=== PATIENT | male | born 1940 | race Caucasian/White ===

== ENCOUNTER 2018-01-16 21:21 | Inpatient (IN) | payer OTHER ==
--- NOTE | 2018-01-16 22:43 | PDOC ---
History of Present Illness - General Chief Complaint: Urinary Problem Stated Complaint: CONSTIPATION Time Seen by Provider: 01/16/18 21:42 History Source: Patient Exam Limitations: No Limitations - History of Present Illness Initial Comments: 01/16/18 22:38 77m with pmh of prediabetes, L5 presents with radiculopathy and stomach ulcers presents with urinary retention for the past few days. He got an endoscopy and colonoscopy on January 05 and was started 3 days ago on H. Pylori tri-therapy. Patient complains that his appetite has been poor since then and that he hasn't moved his bowels in days. 01/16/18 22:47 Past History - Past Medical History Allergies/Adverse Reactions: Allergies Allergy/AdvReac Type Severity Reaction Status Date / Time No Known Allergies Allergy Verified 01/16/18 22:29 Home Medications: Ambulatory Orders Amoxicillin - [Amoxicillin 500mg Capsule -] 1,000 mg PO BID 01/16/18 Clarithromycin 1,000 mg PO BID 01/16/18 Dexlansoprazole [Dexilant] 60 mg PO BID 01/16/18 Enalapril Maleate [Vasotec -] 10 mg PO DAILY 01/16/18 - Suicide/Smoking/Psychosocial Hx Smoking History: Never smoked Have you smoked in the past 12 months: No Hx Alcohol Use: No Drug/Substance Use Hx: No Review of Systems - Review of Systems Able to Perform ROS?: Yes Is the patient limited French proficient: No Constitutional: No: Symptoms Reported HEENTM: No: Symptoms Reported Respiratory: No: Symptoms reported Cardiac (ROS): No: Symptoms Reported ABD/GI: Yes: Abdominal Distended Musculoskeletal: No: Symptoms Reported Integumentary: No: Symptoms Reported Neurological: Yes: Pre-Existing Deficit (decreased sensation in the legs. ) All Other Systems: Reviewed and Negative *Physical Exam - Vital Signs Last Vital Signs Temp Pulse Resp BP Pulse Ox 99.1 F 102 H 18 118/64 100 01/16/18 21:31 01/16/18 21:31 01/16/18 21:31 01/16/18 21:31 01/16/18 21:31 - Physical Exam General Appearance: Yes: Nourished, Appropriately Dressed. No: Apparent Distress HEENT: positive: EOMI, JIAN, Normal ENT Inspection Respiratory/Chest: positive: Lungs Clear, Normal Breath Sounds. negative: Chest Tender, Respiratory Distress Cardiovascular: positive: Regular Rhythm, S1, S2, Tachycardia Gastrointestinal/Abdominal: positive: Normal Bowel Sounds, Soft, Distended. negative: Tender, Guarding Musculoskeletal: positive: Normal Inspection. negative: CVA Tenderness Extremity: positive: Normal Capillary Refill, Normal Inspection, Normal Range of Motion Integumentary: positive: Normal Color, Dry, Warm Neurologic: positive: Fully Oriented, Alert, Normal Mood/Affect, Normal Response , Motor Strength 11/15 ED Treatment Course - LABORATORY CBC & Chemistry Diagram: 01/16/18 22:50 01/16/18 22:50 Medical Decision Making - Medical Decision Making 01/16/18 22:[address] El catheter, check UA, uCx. basic labs. El: 1L of urine 01/17/18 01:41 CT lumbar spine : lytic mass with soft tissue components involving the right iliac and sacroiliac articulation. Scattered nodules suggesting metastatic prostate cancer. Admit to hospitalist. *DC/Admit/Observation/Transfer Diagnosis at time of Disposition: Prostate cancer metastatic to bone - Discharge Dispostion Condition at time of disposition: Stable Decision to Admit order: Yes - Referrals - Patient Instructions - Post Discharge Activity
--- NOTE | 2018-01-16 22:51 | PDOC ---
Attending Attestation - HPI HPI: 01/16/18 23:03 The patient is a 77 year old male with a significant PMH of prediabetes, L5 with radiculopathy and stomach ulcers presenting with urinary retention and constipation over the last few days. The patient reports he had an endoscopy and colonoscopy on January 05 and was started in antibiotics for H. Pylori. The patient denies chest pain, shortness of breath, headache and dizziness. Denies fever, chills, nausea, vomit, and diarrhea. Denies dysuria, frequency, urgency and hematuria. Allergies: NKA Past surgical history: None reported. Social history: No reported alcohol, drug, or cigarette use. <Genevieve Esparza - Last Filed: 01/16/18 23:03> - Resident Resident Name: Chris Valdovinos - ED Attending Attestation I have performed the following: I have examined & evaluated the patient, The case was reviewed & discussed with the resident, I agree w/resident's findings & plan, Exceptions are as noted - Physicial Exam PE: GENERAL: Awake, alert, and fully oriented, in no acute distress HEAD: No signs of trauma EYES: PERRLA, EOMI, sclera anicteric, conjunctiva clear ENT: Auricles normal inspection, hearing grossly normal, nares patent, oropharynx clear without exudates. Moist mucosa NECK: Normal ROM, supple, no lymphadenopathy, JVD, or masses LUNGS: Breath sounds equal, clear to auscultation bilaterally. No wheezes, and no crackles HEART: Regular rate and rhythm, normal S1 and S2, no murmurs, rubs or gallops ABDOMEN: Soft, nontender, normoactive bowel sounds. No guarding, no rebound. No masses EXTREMITIES: Normal range of motion, no edema. No clubbing or cyanosis. No cords, erythema, or tenderness NEUROLOGICAL: Cranial nerves II through XII grossly intact. Normal speech, normal gait SKIN: Warm, Dry, normal turgor, no rashes or lesions noted. : Normal sensation to the perineum. - Medical Decision Making Pt with history of lumbar spinal disease presents with urine retention and constipation. His urine retention may be due to BPH, leading to mechanical obstruction causing constipation. However, in light of prior spinal disease, will obtain advanced imaging to r/o a spinal lesion. MRI not available at the time patient presented (too late in the day), will start with CT. <Rosemarie Lopez - Last Filed: 01/17/18 00:44>
[2018-01-16 23:10] LABS: BASO % 0.5 % (0-2.0); EOS % 0.4 % (0-4.5); HEMATOCRIT 36.7 % (35.4-49); HEMOGLOBIN 12.3 GM/dL (11.7-16.9); LYMPH % 13.8 % (8-40); MCH 29.2 pg (25.7-33.7); MCHC 33.5 g/dl (32.0-35.9); MEAN CELL VOLUME 87.1 fl (80-96); MEAN PLT VOLUME 7.7 fl (7.5-11.1); MONO % 15.5 % (3.8-10.2); NEUT % 69.8 % (42.8-82.8); PLATELET COUNT 241 K/MM3 (134-434); RBC 4.21 M/mm3 (4.00-5.60); RDW 14.1 % (11.9-15.9); URINE APPEARANCE CLEAR; URINE BILIRUBIN NEGATIVE (<2.0 mg/dL); URINE COLOR YELLOW; URINE GLUCOSE (UA) NEGATIVE (NEGATIVE); URINE KETONE NEGATIVE (NEGATIVE); URINE LEUK ESTERASE NEGATIVE (NEGATIVE); URINE NITRITE NEGATIVE (NEGATIVE); URINE PROTEIN NEGATIVE (NEGATIVE); WHITE BLOOD COUNT 10.1 K/mm3 (4.0-10.0)
[2018-01-16 23:24] LABS: URINE MUCUS RARE
[2018-01-16 23:34] LABS: ALBUMIN 3.2 g/dl (3.4-5.0); ALK PHOS 749 U/L (45-117); ANION GAP 8 (8-16); BILIRUBIN,TOTAL 0.7 mg/dL (0.2-1.0); BLOOD UREA NITROGEN 23 mg/dL (7-18); CALCIUM 8.6 mg/dL (8.5-10.1); CHLORIDE 100 mmol/L (98-107); CO2 28 mmol/L (21-32); CREATININE 1.3 mg/dL (0.7-1.3); GLUCOSE,RANDOM 114 mg/dL (74-106); POTASSIUM 4.5 mmol/L (3.5-5.1); SGOT/AST 219 U/L (15-37); SGPT/ALT 18 U/L (12-78); SODIUM 136 mmol/L (136-145); TOT PROT 7.4 g/dl (6.4-8.2)
--- NOTE | 2018-01-17 04:51 | PN ---
Teaching Attending Note Name of Resident: Rosetta Le ATTENDING PHYSICIAN STATEMENT I saw and evaluated the patient. I reviewed the resident's note and discussed the case with the resident. I agree with the resident's findings and plan as documented. SUBJECTIVE: Patient is a 77 year old man with a significant PMH of prediabetes, BPH, right foot plantar numbness, PUD presenting with urinary retention and constipation over the last few days. He also has bilateral thigh and back pain. The patient reports he had an endoscopy and colonoscopy on January 05 and was started in antibiotics for H. Pylori infection. OBJECTIVE: Alert and in no acute distress. Vital Signs Period Temp Pulse Resp BP Sys/Tapia Pulse Ox Last 24 Hr 99.1 F 102 18 118/64 100 HEENT: No Jaundice, eye redness or discharge, PERRLA, EOMI. Normocephalic, atraumatic. External ears are normal and hearing is grossly intact. No nasal discharge. Neck: Supple, nontender. No palpable adenopathy or thyromegaly. No JVD Chest: Good effort. Clear to auscultation and percussion. Heart: Regular. No S3, rub or murmur Abdomen: Not distended, soft, nontender and no HSM. No rebound or guarding. Normoactive bowel sounds. Ext: Peripheral pulses intact. No leg edema. Lumbar vertebrae tenderness. Cui in place draining clear urine. Skin: Warm and dry. No petechiae, rash or ecchymosis. Neuro: Alert. Oriented x3. CN 2-12 grossly intact. Sensation grossly intact in all four extremities and DTR are symmetric. Current Medications Generic Name Dose Route Start Last Admin Trade Name Freq PRN Reason Stop Dose Admin Acetaminophen 650 mg 01/17/18 04:24 Tylenol - PO Q4H PRN PAIN LEVEL 1-5 Heparin Sodium (Porcine) 5,000 unit 01/17/18 06:00 Heparin - SQ TID [facility] Sodium Chloride 1,000 mls @ 83 mls/hr 01/17/18 03:30 Normal Saline - IV ASDIR [facility] Home Medications Medication Instructions Recorded Amoxicillin - [Amoxicillin 500mg 1,000 mg PO BID 01/16/18 Capsule -] Clarithromycin 1,000 mg PO BID 01/16/18 Dexlansoprazole [Dexilant] 60 mg PO BID 01/16/18 Enalapril Maleate [Vasotec -] 10 mg PO DAILY 01/16/18 Abnormal Lab Results 01/16/18 01/16/18 01/16/18 22:50 22:50 22:50 WBC 10.1 H Monocytes % 15.5 H BUN 23 H Random Glucose 114 H AST 219 H Alkaline Phosphatase 749 H Albumin 3.2 L Urine Blood 1+ H ASSESSMENT AND PLAN: 1. Urinary retention and bone pain - CT scan showed lumbar lytic and sclerotic bone lesions as well as an enlarged prostate - coupled with elevated alkaline phosphatase, highly suspicious for prostate cancer. Search for other ? metastatic lesions (liver, femur..), get prostate sonogram, PSA, lumbosacral MRI and consult urology and oncology. Continue cui. 2. PUD with H. Pylori infection - Will complete his two week course of antibiotics regimen. 3. Constipation - Treat with Miralax and liberal oral fluids. 4. DVT prophylaxis - Heparin 5000u sq tid. 5. Advance directives - Full code
[2018-01-17] MEDS: SODIUM CHLORIDE 1,000 ML IV SCH ×2 (05:40→23:48)
[2018-01-17 05:45] VITALS: BMI 17.9
[2018-01-17] MEDS: HEPARIN NA (PORCINE) 5,000 UNITS/ML 1ML VIAL SQ SCH ×3 (06:14→21:47)
--- NOTE | 2018-01-17 07:05 | HP ---
CHIEF COMPLAINT: urinary retention PCP: none HISTORY OF PRESENT ILLNESS: 77M with pmhx of HTN, BPH, +H. Pylori and currently being treated, lower back pain admitted for urinary retention. He admits that the urinary retention had started months ago and progressively got worse last night where he was no able to empty his bladder at all. He denies history of UTI, STDs, hematuria, penile discharge or burning sensation during urination. He also denies fever/chills, nausea/vomiting, VIEYRA/dizziness, chest pain, and SOB. He says he was previously examined by a doctor years ago in which he was told that he had an enlarged prostate. He denies follow up for the enlarged prostate for further evaluation. ER course was notable for: (1) Cui catheter put in place, with 625cc output. U/A: +1 blood. (2) CT Lumbar spine: mixed lytic & sclerotic masses in lumbar vertebral body suggesting clinical hx of prostate neoplasm; mottles lytic masses in R SI articulation and sacrum (3) Recent Travel: Travels back and forth between [place], where he currently lives , and [place] to visit his daughters. PAST MEDICAL HISTORY: HTN BPH +H. 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 He currently lives in [place] with his and son. He has 2 daughters and 1 son. Family History: unknown Allergies No Known Allergies Allergy (Verified 01/16/18 22:29) HOME MEDICATIONS: Home Medications Medication Instructions Recorded Amoxicillin - [Amoxicillin 500mg 1,000 mg PO BID 01/16/18 Capsule -] Clarithromycin 1,000 mg PO BID 01/16/18 Dexlansoprazole [Dexilant] 60 mg PO BID 01/16/18 Enalapril Maleate [Vasotec -] 10 mg PO DAILY 01/16/18 REVIEW OF SYSTEMS CONSTITUTIONAL: Denies fever, chills, nausea/vomiting, headaches, dizziness CARDIOVASCULAR: Denies chest pain, palpitations, abnormal heart rate, [place], orthopnea RESPIRATORY: Denies cough, sob, wheezing GASTROINTESTINAL: Admits to constipation, denies diarrhea or black stools GENITOURINARY: Admits to urinary retention; Denies pain/burning urination or hematuria MUSCULOSKELETAL: Admits to lower back pain that alleviated by laying on side, Admits to pain and discomfort in thighs after walking SKIN: Denies rashes, lesions, cuts HEMATOLOGIC/IMMUNOLOGIC: Denies easy bleeding or bruising ENDOCRINE: Denies unintentional weight gain/loss or heat/cold intolerance NEUROLOGIC: Admits to numbness in plantar surface of R foot PHYSICAL EXAMINATION Vital Signs - 24 hr 01/16/18 01/17/18 01/17/18 21:31 04:57 05:31 Temperature 99.1 F 100.1 F H Pulse Rate 102 H 100 H Pulse Rate [ 95 H Left] Respiratory 18 18 18 Rate Blood Pressure 118/64 124/73 Blood Pressure 116/59 [Right Arm] O2 Sat by Pulse 100 100 96 Oximetry (%) 01/17/18 06:17 Temperature 98.8 F Pulse Rate Pulse Rate [ Left] Respiratory Rate Blood Pressure Blood Pressure [Right Arm] O2 Sat by Pulse Oximetry (%) GENERAL: NAD. AAOx3 HEAD: AT/NC EYES: EOMI. EARS, NOSE, THROAT: Ear normal, no discharge or tenderness. Nare patent. No erythema or lesions noted in oropharynx. NECK: Supple, no JVD or LAD> LUNGS: CTA B/L. Symmetric chest rise. No wheezes, rhonchi, or rales appreciated HEART: RRR. Normal S1, S2. No murmurs, rubs, or gallops appreciated. ABDOMEN: Soft NT/ND. Normoactive bowel sounds in all 4Qs. No masses or deformities. MUSCULOSKELETAL: 5/5 motor strength on U/L B/L extremities; No peripheral edema noted. NEUROLOGICAL: Cranial nerves II-XII intact. Normal speech. PSYCHIATRIC: Cooperative. Good eye contact. Appropriate mood and affect. SKIN: Warm, dry, normal turgor, no rashes or lesions noted, normal capillary refill. Laboratory Results - last 24 hr 01/16/18 01/16/18 01/16/18 22:50 22:50 22:50 WBC 10.1 H RBC 4.21 Hgb 12.3 Hct 36.7 MCV 87.1 MCH 29.2 MCHC 33.5 RDW 14.1 Plt Count 241 MPV 7.7 Absolute Neuts (auto) 7.0 Neutrophils % 69.8 Lymphocytes % 13.8 Monocytes % 15.5 H Eosinophils % 0.4 Basophils % 0.5 Nucleated RBC % 0 Sodium 136 Potassium 4.5 Chloride 100 Carbon Dioxide 28 Anion Gap 8 BUN 23 H Creatinine 1.3 Creat Clearance w eGFR 53.53 Random Glucose 114 H Calcium 8.6 Total Bilirubin 0.7 AST 219 H ALT 18 Alkaline Phosphatase 749 H Total Protein 7.4 Albumin 3.2 L Urine Color Yellow Urine Appearance Clear Urine pH 5.0 Ur Specific [place] 1.014 Urine Protein Negative Urine Glucose (UA) Negative Urine Ketones Negative Urine Blood 1+ H Urine Nitrite Negative Urine Bilirubin Negative Urine Urobilinogen 2.0 Ur Leukocyte Esterase Negative Urine WBC (Auto) 1 Urine RBC (Auto) [address] Lumbar spine: mixed lytic & sclerotic masses in lumbar vertebral body suggesting clinical hx of prostate neoplasm; mottles lytic masses in R SI articulation and sacrum ASSESSMENT/PLAN: 77M pmhx HTN, BPH, +H. Pylori (currently being treated), lumbar back pain who was admitted for urinary retention. #urinary retention/hx of BPH -cont cui catheter, monitor I/O, 625cc urine from 1st bag -f/u uro consult, Dr. Sarmiento #lumbar back pain -possible lumbar nerve impingement vs. prostate cx w/ mets to bone as the cause of pain -CT Lumbar spine: mixed lytic & sclerotic masses in lumbar vertebral body suggesting clinical hx of prostate neoplasm; mottles lytic masses in R SI articulation and sacrum - f/u neuro consult, Dr. Arrington - Tylenol 650 q4h PRN for pain #PUD +H. Pylori - cont home meds #constipation - Miralax 17g PO QD #DVT ppx - Heparin 5000U SQ TID dispo -full code Visit type - Emergency Visit Emergency Visit: Yes ED Registration Date: 01/16/18 Care time: The patient presented to the Emergency Department on the above date and was hospitalized for further evaluation of their emergent condition. - New Patient This patient is new to me today: Yes Date on this admission: 01/17/18 - Critical Care Critical Care patient: No Hospitalist Screening - Colonoscopy Questionnaire Colonoscopy Questionnaire: Colonoscopy Questionnaire - Patient: 50 - 75 years old and never had a screening colonoscopy: Unknown History of colon or rectal polyps, or CA: Unknown History of IBD, Crohn's disease or UC: Unknown History of abdominal radiation therapy as a child: Unknown - Relative: 1 with colon or rectal CA, or polyps at age 60 or younger: Unknown Colon or rectal CA diagnosed at age 45 or younger: Unknown Multiple relatives with colon or rectal CA: Unknown - Outcome: Screening Result: Negative Screen
[2018-01-17 08:38] LABS: HEMATOCRIT 36.5 % (35.4-49); HEMOGLOBIN 12.2 GM/dL (11.7-16.9); MCHC 33.4 g/dl (32.0-35.9); MEAN CELL VOLUME 86.8 fl (80-96); MEAN PLT VOLUME 7.4 fl (7.5-11.1); PLATELET COUNT 218 K/MM3 (134-434); RDW 14.1 % (11.9-15.9); WHITE BLOOD COUNT 9.1 K/mm3 (4.0-10.0)
[2018-01-17 09:11] LABS: ANION GAP 9 (8-16); BLOOD UREA NITROGEN 19 mg/dL (7-18); CALCIUM 8.5 mg/dL (8.5-10.1); CHLORIDE 100 mmol/L (98-107); CO2 26 mmol/L (21-32); CREATININE 1.1 mg/dL (0.7-1.3); GLUCOSE,RANDOM 148 mg/dL (74-106); POTASSIUM 3.9 mmol/L (3.5-5.1); SODIUM 135 mmol/L (136-145)
[2018-01-17] MEDS: POLYETHYLENE GLYCOL 3350 119 GM BTL PO SCH (09:21)
[2018-01-17 09:59] LABS: INR 1.14 (0.82-1.09); PROTHROMBIN TIME (PATIENT) 12.9 SEC (9.7-13.0)
--- NOTE | 2018-01-17 10:21 | CONSULT ---
Consult - text type - Consultation Consultation Note: NEUROSURGERY CONSULTATION Jacinto Vaughan is a 77 year old male who has a history of urinary difficulties for several months in terms of difficulty emptying his bladder. He presents to the [facility] ER with a history of chronic back pain and 5 days of significant difficulty emptying his bladder. CT demonstrates moderate Lumbar degenerative scoliosis with multilevel facet disease and osteophyte formation. There are lytic lesions at multiple levels and most concerning are lesions in the Sacrum near the S2 level which appear to involve the SI joints bilaterally and there appears to be soft tissue extension into and filling the spinal canal at the mid sacral level. I discussed the urgent nature of evaluating and treating urinary retention (patient now has a cui) and that it may be too late to restore bladder function. In any case, MRI of the Lumbar spine with extension to include axial cuts through the sacrum will be very important in determining whether decompression +/- stabilization should be offered on an urgent basis. I encourage keeping the patient NPO and obtaining the MRI as described DOMINIC.
[2018-01-17] MEDS: ACETAMINOPHEN 325 MG TABLET (FP) PO PRN ×2 (14:25→21:44)
[2018-01-17] MEDS: AMOXICILLIN 500 MG CAPSULE (FP) PO SCH ×2 (14:28→21:45)
--- NOTE | 2018-01-17 14:56 | CONSULT ---
Consult - text type - Consultation Consultation Note: 77M came in with back pain and urinary retention and found to have a large sacral mass compressing on the S2 and S3 R. sacral nerve roots. He has no weakness in his legs. He has no prior h/o of cancer except for possible BPH. His only symptoms in the past has been urinary hesitancy and back pain. Recent Travel: none PAST MEDICAL HISTORY: venous insufficiency in b/l LE PAST SURGICAL HISTORY: Social History: Smoking: Alcohol: Drugs: Family History: Allergies No Known Allergies Allergy (Verified 01/16/18 22:29) HOME MEDICATIONS: Home Medications Medication Instructions Recorded Amoxicillin - [Amoxicillin 500mg 1,000 mg PO BID 01/16/18 Capsule -] Clarithromycin 1,000 mg PO BID 01/16/18 Dexlansoprazole [Dexilant] 60 mg PO BID 01/16/18 Enalapril Maleate [Vasotec -] 10 mg PO DAILY 01/16/18 REVIEW OF SYSTEMS CONSTITUTIONAL: Absent: fever, chills, diaphoresis, generalized weakness, malaise, loss of appetite, weight change HEENT: Absent: rhinorrhea, nasal congestion, throat pain, throat swelling, difficulty swallowing, mouth swelling, ear pain, eye pain, visual changes CARDIOVASCULAR: Absent: chest pain, syncope, palpitations, irregular heart rate, lightheadedness , peripheral edema RESPIRATORY: Absent: cough, shortness of breath, dyspnea with exertion, orthopnea, wheezing, stridor, hemoptysis GASTROINTESTINAL: Absent: abdominal pain, abdominal distension, nausea, vomiting, diarrhea, constipation, melena, hematochezia GENITOURINARY: Absent: dysuria, frequency, urgency, hesitancy, hematuria, flank pain, genital pain MUSCULOSKELETAL: Absent: myalgia, arthralgia, joint swelling, back pain, neck pain SKIN: Absent: rash, itching, pallor HEMATOLOGIC/IMMUNOLOGIC: Absent: easy bleeding, easy bruising, lymphadenopathy, frequent infections ENDOCRINE: Absent: unexplained weight gain, unexplained weight loss, heat intolerance, cold intolerance NEUROLOGIC: Absent: headache, focal weakness or paresthesias, dizziness, unsteady gait, seizure, mental status changes, bladder or bowel incontinence PSYCHIATRIC: Absent: anxiety, depression, suicidal or homicidal ideation, hallucinations. PHYSICAL EXAMINATION Vital Signs Period Temp Pulse Resp BP Sys/Tapia Pulse Ox Last 24 Hr 98.8 F-101.7 F 95-102 18-18 116-125/53-83 95-100 GENERAL: Awake, alert, and fully oriented, in no acute distress. HEAD: Normal with no signs of trauma. EYES: Pupils equal, round and reactive to light, extraocular movements intact, sclera anicteric, conjunctiva clear. No lid lag. EARS, NOSE, THROAT: Ears normal, nares patent, oropharynx clear without exudates. Moist mucous membranes. NECK: Normal range of motion, supple without lymphadenopathy, JVD, or masses. LUNGS: Breath sounds equal, clear to auscultation bilaterally. No wheezes, and no crackles. No accessory muscle use. HEART: Regular rate and rhythm, normal S1 and S2 without murmur, rub or gallop. ABDOMEN: Soft, nontender, not distended, normoactive bowel sounds, no guarding, no rebound, no masses. No hepatomegaly or splenomegaly. MUSCULOSKELETAL: Normal range of motion at all joints. No bony deformities or tenderness. No CVA tenderness. UPPER EXTREMITIES: 2+ pulses, warm, well-perfused. No cyanosis. No clubbing. No peripheral edema. LOWER EXTREMITIES: 2+ pulses, warm, well-perfused. No calf tenderness. No peripheral edema. NEUROLOGICAL: Cranial nerves II-XII intact. Normal speech. Normal gait. PSYCHIATRIC: Cooperative. Good eye contact. Appropriate mood and affect. SKIN: Warm, dry, normal turgor, no rashes or lesions noted, normal capillary refill. CBC, BMP 01/17/18 07:50 01/17/18 07:50 ASSESSMENT/PLAN: Sacral mass most consistent with a malignancy and sclerotic and lytic bone lesions could be consistent with prostate Ca His LFT abnormalities might suggest liver mets and the increase in ALP is due to bone involvement -I agree with the neurosurgical assessment of MRI L spine -Decadron 10 mg q6 can help to releive the edema +PPI -Send tumor markers inc. PSA, CEA, CA19-9, LDH -He will need a CT C/A/P to restage his disease -Biopsy of the sacral mass to determine the tumor type -I have explained this in detail to the patient and his daughter
[2018-01-17] MEDS ORDERED: CEFTRIAXONE 1 GM in DEXTROSE 5%-WATER - 50 ML IVPB ONE (15:00)
[2018-01-17] MEDS ORDERED: PANTOPRAZOLE 20 MG TABLET (FP) PO ONE (15:06)
[2018-01-17] MEDS ORDERED: DEXTROSE 5%-WATER - 50 ML IVPB ONE (15:07)
[2018-01-17] MEDS ORDERED: cefTRIAXone SODIUM 1 GM VIAL ONE (15:07)
--- NOTE | 2018-01-17 19:33 | HOSP ---
Subjective - Review of Symptoms Events since last encounter: Fever of 101.5 earlier, figueroa culture, started on Rocephin IV daily since has a low back pain with cui Vital Signs Temperature 99.3 F 01/17/18 17:27 Pulse Rate 88 01/17/18 17:00 Respiratory Rate 18 01/17/18 17:00 Blood Pressure 119/64 01/17/18 17:00 O2 Sat by Pulse Oximetry (%) 95 01/17/18 09:00 # GERD due to H.Pylori continue amoxicillin/biaxin and PPI (triple therapy) Physical Examination Vital Signs: Vital Signs Temperature 99.3 F 01/17/18 17:27 Pulse Rate 88 01/17/18 17:00 Respiratory Rate 18 01/17/18 17:00 Blood Pressure 119/64 01/17/18 17:00 O2 Sat by Pulse Oximetry (%) 95 01/17/18 09:00 Labs: CBC, BMP 01/17/18 07:50 01/17/18 07:50
[2018-01-17] MEDS: PATIENT'S OWN MEDICATION (NON-FORMULARY) (Dexlansoprazole [Dexilant] 60 MG) PO SCH (21:45)
[2018-01-17] MEDS: CLARITHROMYCIN 500 MG PO SCH (21:45)
[2018-01-17] MEDS: DEXAMETHASONE 4 MG TABLET (FP) PO SCH (21:46)
[2018-01-18] MEDS: HEPARIN NA (PORCINE) 5,000 UNITS/ML 1ML VIAL SQ SCH ×3 (06:03→23:02)
[2018-01-18] MEDS: SODIUM CHLORIDE 1,000 ML IV SCH ×3 (06:03→23:07)
[2018-01-18] MEDS: DEXAMETHASONE 4 MG TABLET (FP) PO SCH ×3 (06:03→23:02)
[2018-01-18 08:25] LABS: BASO % 0.1 % (0-2.0); HEMATOCRIT 37.4 % (35.4-49); HEMOGLOBIN 12.4 GM/dL (11.7-16.9); LYMPH % 9.6 % (8-40); MCH 29.4 pg (25.7-33.7); MCHC 33.3 g/dl (32.0-35.9); MEAN CELL VOLUME 88.3 fl (80-96); MEAN PLT VOLUME 8.1 fl (7.5-11.1); MONO % 5.2 % (3.8-10.2); NEUT % 85.1 % (42.8-82.8); PLATELET COUNT 221 K/MM3 (134-434); RBC 4.23 M/mm3 (4.00-5.60); RDW 14.2 % (11.9-15.9); WHITE BLOOD COUNT 7.7 K/mm3 (4.0-10.0)
[2018-01-18 08:28] LABS: CHLORIDE 102 mmol/L (98-107); POTASSIUM 4.4 mmol/L (3.5-5.1); SODIUM 137 mmol/L (136-145)
[2018-01-18 08:44] LABS: ALBUMIN 2.6 g/dl (3.4-5.0); ALK PHOS 541 U/L (45-117); ANION GAP 10 (8-16); BILIRUBIN,TOTAL 0.6 mg/dL (0.2-1.0); BLOOD UREA NITROGEN 17 mg/dL (7-18); CALCIUM 8.2 mg/dL (8.5-10.1); CO2 25 mmol/L (21-32); GLUCOSE,RANDOM 135 mg/dL (74-106); LDH 284 U/L (87-241); MAGNESIUM 2.3 mg/dL (1.8-2.4); PHOSPHOROUS 3.6 mg/dL (2.5-4.9); SGOT/AST 84 U/L (15-37); SGPT/ALT 14 U/L (12-78); TOT PROT 6.6 g/dl (6.4-8.2)
[2018-01-18] MEDS: AMOXICILLIN 500 MG CAPSULE (FP) PO SCH ×3 (09:44→22:59)
[2018-01-18] MEDS: CLARITHROMYCIN 500 MG PO SCH ×2 (09:46→23:00)
[2018-01-18] MEDS: PATIENT'S OWN MEDICATION (NON-FORMULARY) (Dexlansoprazole [Dexilant] 60 MG) PO SCH (09:47)
[2018-01-18] MEDS: POLYETHYLENE GLYCOL 3350 119 GM BTL PO SCH (09:47)
[2018-01-18] MEDS: ENALAPRIL MALEATE 10 MG TABLET (FP) PO SCH (09:47)
[2018-01-18] MEDS ORDERED: DEXTROSE 5%-WATER - 50 ML IVPB ONE (09:49)
[2018-01-18] MEDS ORDERED: cefTRIAXone SODIUM 1 GM VIAL ONE (09:49)
[2018-01-18] MEDS: CEFTRIAXONE 1 GM in DEXTROSE 5%-WATER - 50 ML IVPB SCH (09:52)
--- NOTE | 2018-01-18 10:11 | EKG ---
Test Reason : Blood Pressure : / mmHG Vent. Rate : 096 BPM Atrial Rate : 096 BPM P-R Int : 208 ms QRS Dur : 070 ms QT Int : 334 ms P-R-T Axes : 083 -20 079 degrees QTc Int : 421 ms SINUS RHYTHM WITH PREMATURE ATRIAL COMPLEXES OTHERWISE NORMAL ECG NO PREVIOUS ECGS AVAILABLE Confirmed by RIKA VEGA, BOY ([id number]) on 01/18/2018 10:10:56 AM Referred By: Confirmed By:BOY MELÉNDEZ MD
--- NOTE | 2018-01-18 13:06 | PN ---
Progress Note (short form) - Note Progress Note: 77M came in with back pain and urinary retention and found to have a large sacral mass compressing on the S2 and S3 R. sacral nerve roots. He has no weakness in his legs. He has no prior h/o of cancer except for possible BPH. His only symptoms in the past has been urinary hesitancy and back pain. Vital Signs Period Temp Pulse Resp BP Sys/Tapia Pulse Ox Last 24 Hr 97.8 F-102.2 F 78-102 18-20 110-131/60-83 96 CBC, BMP 01/18/18 06:53 01/18/18 06:53 Current Medications Generic Name Dose Route Start Last Admin Trade Name Freq PRN Reason Stop Dose Admin Acetaminophen 650 mg 01/17/18 04:24 01/17/18 21:44 Tylenol - PO 650 mg Q4H PRN Administration PAIN LEVEL 1-5 Amoxicillin 1,000 mg 01/17/18 13:15 01/18/18 09:44 Amoxicillin - PO 1,000 mg BID WOJCIECH Administration Dexamethasone 4 mg 01/17/18 22:00 01/18/18 06:03 Decadron - PO 01/21/18 23:59 4 mg TID WOJCIECH Administration Enalapril Maleate 10 mg 01/18/18 10:00 01/18/18 09:47 Vasotec - PO 10 mg DAILY WOJCIECH Administration Heparin Sodium (Porcine) 5,000 unit 01/17/18 06:00 01/18/18 06:03 Heparin - SQ 5,000 unit TID WOJCIECH Administration Sodium Chloride 1,000 mls @ 83 mls/hr 01/17/18 03:30 01/18/18 12:41 Normal Saline - IV 83 mls/hr ASDIR WOJCIECH Administration Ceftriaxone Sodium 1 gm/ 50 mls @ 100 mls/hr 01/18/18 10:00 01/18/18 09:52 Dextrose IVPB 100 mls/hr DAILY WOJCIECH Administration Protocol Patient's Own 500 mg 01/17/18 22:00 01/18/18 09:46 Medication (Non- PO 500 mg Formulary) ( BID WOJCIECH Administration Clarithromycin [ Clarithromycin] 500 Mg) Non-Formulary Medication 60 mg 01/17/18 20:00 01/18/18 09:47 Dexlansoprazole [Dexilant] PO 60 mg DAILY WOJCIECH Administration Polyethylene Glycol 17 gm 01/17/18 10:00 01/18/18 09:47 Miralax (For Daily Use) - PO 17 g DAILY WOJCIECH Administration ASSESSMENT/PLAN: Sacral mass most consistent with a malignancy and sclerotic and lytic bone lesions could be consistent with prostate Ca His LFT abnormalities may be due to liver mets and the increase in ALP is due to bone involvement -MRI L spine reviewed -continue Decadron 10 mg q6 to releive the edema +PPI - his pain is better today -The plan would be neurosurg eval. f/v by biopsy +/- Rad Onc consult depending on tumor type. -f/v tumor markers inc. PSA, CEA, CA19-9, LDH -He will need a CT C/A/P to restage his disease -Biopsy of the sacral mass to determine the tumor type -I have explained this in detail to the patient and his daughter
--- NOTE | 2018-01-18 18:13 | PN ---
Progress Note (short form) - Note Progress Note: Patient is comfortable with no acute distress. Vital Signs Temperature 98.1 F 01/18/18 10:00 Pulse Rate 80 01/18/18 10:00 Respiratory Rate 20 01/18/18 10:00 Blood Pressure 97/63 01/18/18 10:00 O2 Sat by Pulse Oximetry (%) 97 01/18/18 10:00 GENERAL: NAD. AAOx3 HEENT: AT/NC, EOMI. Ear normal, no discharge or tenderness. No erythema NECK: Supple, no JVD LUNGS: CTA B/L. Symmetric chest rise. No wheezes, rhonchi, or rales appreciated HEART: RRR. Normal S1, S2. No murmurs, rubs, or gallops appreciated. ABDOMEN: Soft NT/ND. Normoactive bowel sounds . No masses or deformities. MUSCULOSKELETAL: 5/5 motor strength on U/L B/L extremities; No edema NEUROLOGICAL: as per neurosurgeon PSYCHIATRIC: Cooperative. Good eye contact. Appropriate mood and affect. SKIN: Warm, dry, normal turgor, no rashes or lesions noted, normal capillary refill. CBCD WBC 7.7 K/mm3 (4.0-10.0) 01/18/18 06:53 RBC 4.23 M/mm3 (4.00-5.60) 01/18/18 06:53 Hgb 12.4 GM/dL (11.7-16.9) 01/18/18 06:53 Hct 37.4 % (35.4-49) 01/18/18 06:53 MCV 88.3 fl (80-96) 01/18/18 06:53 MCHC 33.3 g/dl (32.0-35.9) 01/18/18 06:53 RDW 14.2 % (11.9-15.9) 01/18/18 06:53 Plt Count 221 K/MM3 (134-434) 01/18/18 06:53 MPV 8.1 fl (7.5-11.1) 01/18/18 06:53 CMP Sodium 137 mmol/L (136-145) 01/18/18 06:53 Potassium 4.4 mmol/L (3.5-5.1) 01/18/18 06:53 Chloride 102 mmol/L (98-107) 01/18/18 06:53 Carbon Dioxide 25 mmol/L (21-32) 01/18/18 06:53 Anion Gap 10 (8-16) 01/18/18 06:53 BUN 17 mg/dL (7-18) 01/18/18 06:53 Creatinine 1.0 mg/dL (0.7-1.3) 01/18/18 06:53 Creat Clearance w eGFR > 60 (>60) 01/18/18 06:53 Random Glucose 135 mg/dL (74-106) H 01/18/18 06:53 Calcium 8.2 mg/dL (8.5-10.1) L 01/18/18 06:53 Total Bilirubin 0.6 mg/dL (0.2-1.0) 01/18/18 06:53 AST 84 U/L (15-37) H D 01/18/18 06:53 ALT 14 U/L (12-78) D 01/18/18 06:53 Alkaline Phosphatase 541 U/L (45-117) H D 01/18/18 06:53 Total Protein 6.6 g/dl (6.4-8.2) 01/18/18 06:53 Albumin 2.6 g/dl (3.4-5.0) L 01/18/18 06:53 Current Medications Generic Name Dose Route Start Last Admin Trade Name Maxwellq PRN Reason Stop Dose Admin Acetaminophen 650 mg 01/17/18 04:24 01/17/18 21:44 Tylenol - PO 650 mg Q4H PRN Administration PAIN LEVEL 1-5 Amoxicillin 1,000 mg 01/17/18 13:15 01/18/18 09:44 Amoxicillin - PO 1,000 mg BID WOJCIECH Administration Dexamethasone 4 mg 01/17/18 22:00 01/18/18 13:48 Decadron - PO 01/21/18 23:59 4 mg TID WOJCIECH Administration Enalapril Maleate 10 mg 01/18/18 10:00 01/18/18 09:47 Vasotec - PO 10 mg DAILY WOJCIECH Administration Heparin Sodium (Porcine) 5,000 unit 01/17/18 06:00 01/18/18 13:48 Heparin - SQ 5,000 unit TID WOJCIECH Administration Sodium Chloride 1,000 mls @ 83 mls/hr 01/17/18 03:30 01/18/18 12:41 Normal Saline - IV 83 mls/hr ASDIR WOJCIECH Administration Ceftriaxone Sodium 1 gm/ 50 mls @ 100 mls/hr 01/18/18 10:00 01/18/18 09:52 Dextrose IVPB 100 mls/hr DAILY WOJCIECH Administration Protocol Patient's Own 500 mg 01/17/18 22:00 01/18/18 09:46 Medication (Non- PO 500 mg Formulary) ( BID WOJCIECH Administration Clarithromycin [ Clarithromycin] 500 Mg) Non-Formulary Medication 60 mg 01/17/18 20:00 01/18/18 09:47 Dexlansoprazole [Dexilant] PO 60 mg DAILY WOJCIECH Administration Polyethylene Glycol 17 gm 01/17/18 10:00 01/18/18 09:47 Miralax (For Daily Use) - PO 17 g DAILY WOJCIECH Administration Microbiology 01/17/18 15:30 Blood - Peripheral Venous Blood Culture - Preliminary NO GROWTH OBTAINED AFTER 24 HOURS, INCUBATION TO CONTINUE FOR 4 DAYS. 01/17/18 15:15 Blood - Peripheral Venous Blood Culture - Preliminary NO GROWTH OBTAINED AFTER 24 HOURS, INCUBATION TO CONTINUE FOR 4 DAYS. 01/16/18 22:50 Urine - Urine Cui Urine Culture - Final NO GROWTH OBTAINED CT Lumbar spine (01/16/18): mixed lytic & sclerotic masses in lumbar vertebral body suggesting clinical hx of prostate neoplasm; mottles lytic masses in R SI articulation and sacrum A/P: Patient is a 77 year old male who has a history of urinary difficulties for several months in terms of difficulty emptying his bladder. He presents to the [facility] ER with a history of chronic back pain and 5 days of significant difficulty emptying his bladder #Acute Urinary retention and bone pain - CT scan showed lumbar lytic and sclerotic bone lesions as well as an enlarged prostate - coupled with elevated alkaline phosphatase, highly suspicious for prostate cancer. will get prostate sonogram, PSA, lumbosacral MRI and consult urology and oncology. Continue cui. # PUD with H. Pylori infection - Will complete his two week course of antibiotics regimen. # Constipation - Treat with Miralax and liberal oral fluids. DVT prophylaxis - Heparin 5000u sq tid. Advance directives - Full code Visit type - Emergency Visit Emergency Visit: Yes ED Registration Date: 01/16/18 Care time: The patient presented to the Emergency Department on the above date and was hospitalized for further evaluation of their emergent condition. - New Patient This patient is new to me today: No - Critical Care Critical Care patient: No - Discharge Referral Referred to [facility] Med [facility].C[facility] No
[2018-01-19] MEDS: SODIUM CHLORIDE 1,000 ML IV SCH (05:23)
[2018-01-19] MEDS: HEPARIN NA (PORCINE) 5,000 UNITS/ML 1ML VIAL SQ SCH ×3 (05:56→22:40)
[2018-01-19] MEDS: DEXAMETHASONE 4 MG TABLET (FP) PO SCH ×3 (05:56→22:37)
[2018-01-19] MEDS ORDERED: cefTRIAXone SODIUM 1 GM VIAL ONE (09:13)
[2018-01-19] MEDS ORDERED: DEXTROSE 5%-WATER - 50 ML IVPB ONE (09:13)
[2018-01-19] MEDS: ENALAPRIL MALEATE 10 MG TABLET (FP) PO SCH (09:26)
[2018-01-19] MEDS: CEFTRIAXONE 1 GM in DEXTROSE 5%-WATER - 50 ML IVPB SCH (09:26)
[2018-01-19] MEDS: AMOXICILLIN 500 MG CAPSULE (FP) PO SCH ×2 (09:26→22:36)
[2018-01-19] MEDS: CLARITHROMYCIN 500 MG PO SCH ×2 (09:27→22:37)
[2018-01-19] MEDS: PATIENT'S OWN MEDICATION (NON-FORMULARY) (Dexlansoprazole [Dexilant] 60 MG) PO SCH (09:27)
--- NOTE | 2018-01-19 09:37 | PN ---
Physical Exam: SUBJECTIVE: Patient seen and examined at bedside today. Pt had no complaints overnight. Afebrile. Admits to back pain being much improved since admission. Pt had 2 BM yesterday. No acute events overnight. OBJECTIVE: Vital Signs Period Temp Pulse Resp BP Sys/Tapia Pulse Ox Last 24 Hr 97.6 F-98.1 F 78-85 20-20 97-137/57-84 97-97 GENERAL: NAD. AAOx3 HEAD: AT/NC NECK: Supple, no JVD or LAD LUNGS: CTA B/L. Symmetric chest rise. No wheezes, rhonchi, or rales appreciated HEART: RRR. Normal S1, S2. No murmurs, rubs, or gallops appreciated. ABDOMEN: Soft NT/ND. Normoactive bowel sounds in all 4Qs. No masses or deformities. MUSCULOSKELETAL: 5/5 motor strength on U/L B/L extremities; No peripheral edema noted. NEUROLOGICAL: Cranial nerves II-XII intact. Normal speech. PSYCHIATRIC: Cooperative. Good eye contact. Appropriate mood and affect. SKIN: Warm, dry, normal turgor, no rashes or lesions noted, normal capillary refill. Active Medications Generic Name Dose Route Start Last Admin Trade Name Freq PRN Reason Stop Dose Admin Acetaminophen 650 mg 01/17/18 04:24 01/17/18 21:44 Tylenol - PO 650 mg Q4H PRN Administration PAIN LEVEL 1-5 Amoxicillin 1,000 mg 01/17/18 13:15 01/19/18 09:26 Amoxicillin - PO 1,000 mg BID WOJCIECH Administration Dexamethasone 4 mg 01/17/18 22:00 01/19/18 05:56 Decadron - PO 01/21/18 23:59 4 mg TID WOJCIECH Administration Enalapril Maleate 10 mg 01/18/18 10:00 01/19/18 09:26 Vasotec - PO 10 mg DAILY WOJCIECH Administration Heparin Sodium (Porcine) 5,000 unit 01/17/18 06:00 01/19/18 05:56 Heparin - SQ 5,000 unit TID WOJCIECH Administration Sodium Chloride 1,000 mls @ 83 mls/hr 01/17/18 03:30 01/19/18 05:23 Normal Saline - IV Not Given ASDIR [facility] Ceftriaxone Sodium 1 gm/ 50 mls @ 100 mls/hr 01/18/18 10:00 01/19/18 09:26 Dextrose IVPB 100 mls/hr DAILY WOJCIECH Administration Protocol Patient's Own 500 mg 01/17/18 22:00 01/19/18 09:27 Medication (Non- PO 500 mg Formulary) ( BID WOJCIECH Administration Clarithromycin [ Clarithromycin] 500 Mg) Non-Formulary Medication 60 mg 01/17/18 20:00 01/19/18 09:27 Dexlansoprazole [Dexilant] PO 60 mg DAILY WOJCIECH Administration Polyethylene Glycol 17 gm 01/17/18 10:00 01/18/18 09:47 Miralax (For Daily Use) - PO 17 g DAILY WOJCIECH Administration Pelvic/bladder U/s: Enlarged prostate gland measuring 86cc in volume. Mild thickening of the urinary bladder wall w/ minimal irregularity suggestive of trabeculations. Minimal urine residue is present after unclamping cui catheter. CXR: Coarse lung findings. Scoliosis. Old rib trauma. Fullness of L hilum and AP window area. Suggest CT. MRI Lumbar spine: Extensive metastatic dz throughout the lumbosacral spine visualized bony pelvis and proximal femurs. Very large expansile mass of the R aspect of the sacrum compromising sacral canal R sacral foramina and extends inferiorly and compromises the R sciatic notch. MRI CT: Findings c/w sclerotic and lytic bone metastasis. ASSESSMENT/PLAN: 77M pmhx HTN, BPH, +H. Pylori (currently being treated), lumbar back pain who was admitted for urinary retention. #urinary retention/hx of BPH -cont cui catheter -spoke to Dr. Sarmiento - will be seeing patient this Fri. Antibiotics recommended #lumbar back pain 2/2 to metastatic disease, prostate cx -possible lumbar nerve impingement vs. prostate cx w/ mets to bone as the cause of pain -CT Lumbar spine: mixed lytic & sclerotic masses in lumbar vertebral body suggesting clinical hx of prostate neoplasm; mottles lytic masses in R SI articulation and sacrum - As per Neuro, cont Decadron 10 mg PO q6 to relieve the edema +PPI - pain controlled today. - F/u neurosurg consult - f/u tumor markers inc. PSA, CEA, CA19-9, LDH - f/u CT C/A/P - Biopsy of the sacral mass to determine the tumor type - Tylenol 650 q4h PRN for pain #PUD +H. Pylori - cont home meds #constipation - Miralax 17g PO QD #DVT ppx - Heparin 5000U SQ TID dispo -full code Visit type - Emergency Visit Emergency Visit: No - New Patient This patient is new to me today: No - Critical Care Critical Care patient: No
[2018-01-19] MEDS: POLYETHYLENE GLYCOL 3350 119 GM BTL PO SCH (14:12)
[2018-01-19] MEDS ORDERED: PT OWN MED DRAWER 7, Y5N ONE (20:40)
--- NOTE | 2018-01-19 21:06 | PN ---
Teaching Attending Note Name of Resident: Rosetta Le ATTENDING PHYSICIAN STATEMENT I saw and evaluated the patient. I reviewed the resident's note and discussed the case with the resident. I agree with the resident's findings and plan as documented. SUBJECTIVE: Patient is feeling better with no acute distress. OBJECTIVE: Vital Signs Temperature 98.5 F 01/19/18 18:54 Pulse Rate 86 01/19/18 18:54 Respiratory Rate 20 01/19/18 18:54 Blood Pressure 134/72 01/19/18 18:54 O2 Sat by Pulse Oximetry (%) 97 01/19/18 09:00 CBCD WBC 7.7 K/mm3 (4.0-10.0) 01/18/18 06:53 RBC 4.23 M/mm3 (4.00-5.60) 01/18/18 06:53 Hgb 12.4 GM/dL (11.7-16.9) 01/18/18 06:53 Hct 37.4 % (35.4-49) 01/18/18 06:53 MCV 88.3 fl (80-96) 01/18/18 06:53 MCHC 33.3 g/dl (32.0-35.9) 01/18/18 06:53 RDW 14.2 % (11.9-15.9) 01/18/18 06:53 Plt Count 221 K/MM3 (134-434) 01/18/18 06:53 MPV 8.1 fl (7.5-11.1) 01/18/18 06:53 CMP Sodium 137 mmol/L (136-145) 01/18/18 06:53 Potassium 4.4 mmol/L (3.5-5.1) 01/18/18 06:53 Chloride 102 mmol/L (98-107) 01/18/18 06:53 Carbon Dioxide 25 mmol/L (21-32) 01/18/18 06:53 Anion Gap 10 (8-16) 01/18/18 06:53 BUN 17 mg/dL (7-18) 01/18/18 06:53 Creatinine 1.0 mg/dL (0.7-1.3) 01/18/18 06:53 Creat Clearance w eGFR > 60 (>60) 01/18/18 06:53 Random Glucose 135 mg/dL (74-106) H 01/18/18 06:53 Calcium 8.2 mg/dL (8.5-10.1) L 01/18/18 06:53 Total Bilirubin 0.6 mg/dL (0.2-1.0) 01/18/18 06:53 AST 84 U/L (15-37) H D 01/18/18 06:53 ALT 14 U/L (12-78) D 01/18/18 06:53 Alkaline Phosphatase 541 U/L (45-117) H D 01/18/18 06:53 Total Protein 6.6 g/dl (6.4-8.2) 01/18/18 06:53 Albumin 2.6 g/dl (3.4-5.0) L 01/18/18 06:53 Current Medications Generic Name Dose Route Start Last Admin Trade Name Freq PRN Reason Stop Dose Admin Acetaminophen 650 mg 01/17/18 04:24 01/17/18 21:44 Tylenol - PO 650 mg Q4H PRN Administration PAIN LEVEL 1-5 Amoxicillin 1,000 mg 01/17/18 13:15 01/19/18 09:26 Amoxicillin - PO 1,000 mg BID WOJCIECH Administration Dexamethasone 4 mg 01/17/18 22:00 01/19/18 14:07 Decadron - PO 01/21/18 23:59 4 mg TID WOJCIECH Administration Enalapril Maleate 10 mg 01/18/18 10:00 01/19/18 09:26 Vasotec - PO 10 mg DAILY WOJCIECH Administration Heparin Sodium (Porcine) 5,000 unit 01/17/18 06:00 01/19/18 14:07 Heparin - SQ 5,000 unit TID WOJCIECH Administration Ceftriaxone Sodium 1 gm/ 50 mls @ 100 mls/hr 01/18/18 10:00 01/19/18 09:26 Dextrose IVPB 100 mls/hr DAILY WOJCIECH Administration Protocol Patient's Own 500 mg 01/17/18 22:00 01/19/18 09:27 Medication (Non- PO 500 mg Formulary) ( BID WOJCIECH Administration Clarithromycin [ Clarithromycin] 500 Mg) Non-Formulary Medication 60 mg 01/17/18 20:00 01/19/18 09:27 Dexlansoprazole [Dexilant] PO 60 mg DAILY WOJCIECH Administration Polyethylene Glycol 17 gm 01/17/18 10:00 01/19/18 14:12 Miralax (For Daily Use) - PO Not Given DAILY WOJCIECH Home Medications Medication Instructions Recorded Amoxicillin - [Amoxicillin 500mg 1,000 mg PO BID 01/16/18 Capsule -] Clarithromycin 1,000 mg PO BID 01/16/18 Dexlansoprazole [Dexilant] 60 mg PO BID 01/16/18 Enalapril Maleate [Vasotec -] 10 mg PO DAILY 01/16/18 PE: per resident's note CT chest (01/19/18): very small L pleural effusion seen which has developed since lumbar spine CT; b/l upper lobe bronchiectasis noted w/ associated bronchial wall thickening CT A/P (01/19/18): Prostate gland lobulated enlargement w/ several periprostatic soft tissue nodules due to direct extracapsular dz vs. LAD; Mild thickening of ventral and L lateral jimenes of lower rectum possibly 2/2 contiguous involvement from prostate neoplastic dz; Extensive multifocal osseous metastatic neoplstic dz noted principally including sacrum w/ associated neoplastic soft tissue infiltration of mid to lower aspect of sacral canal. 5.4cm heterogeneous soft tissue lesion noted within R sciatic notch. Focal neoplastic dz involving R femoral neck. Pt may be at risk for pathologic fracture at site. Consider ortho consult. ASSESSMENT/PLAN: 77M pmhx HTN, BPH, +H. Pylori (currently being treated), lumbar back pain who was admitted for urinary retention. #prostate cx/urinary retention/hx of BPH -cont cui catheter -spoke to Dr. Sarmiento - will be seeing patient this Fri. He will be performing a prostate biopsy. Pt currently on Ceftriaxone 1g in Dex 50 cc @ 100cc/hr #lumbar back pain 2/2 to metastatic disease, prostate cx - Bone biopsy scheduled in the AM tomorrow with Dr. Scott; Hep SubQ held, NPO after midnight for procedure. - possible lumbar nerve impingement vs. prostate cx w/ mets to bone as the cause of pain - As per Neuro, cont Decadron 10 mg PO q6 to relieve the edema +PPI - pain controlled today. - As per neurosurg, bone biopsy suggested via percutaenous bx w/ IR. Possible surgical decompression may be needed, but neurosurg has agreed w/ family to avoid surgery first and obtain bone biopsy. - PSA 2719, CEA 2.3, CA19-9 19, LDH - Tylenol 650 q4h PRN for pain #PUD +H. Pylori - cont home meds - currently on Amoxicillin 1000 mg PO BID, Clarithromycin 500 mg PO BID, Dexlansoprazole 60 mg PO QD #constipation - Miralax 17g PO QD #DVT ppx - Heparin 5000U SQ TID held for procedure tomorrow
--- NOTE | 2018-01-19 23:16 | PN ---
Progress Note (short form) - Note Progress Note: Patient with low grade fevers and S2 lesion with canal compromise. Lesion seems too extensive for straightforward resection. Although focal laminectomies may allow for canal decompression and establishment of tissue diagnosis, in the setting of urinary retention and fevers, establishment of tissue diagnosis via percutaneous biopsy would seem to be a reasonable next step. Agree with plans discussed for IR to obtain tissue sample as well as Rad Onc and Oncology consultations. I explained to patient and family that there may be a role for surgical decompression or biopsy, however, at this time, all were in agreement to avoid surgery and pursue tissue diagnosis via IR biopsy.
--- NOTE | 2018-01-20 01:50 | PN ---
Progress Note (short form) - Note Progress Note: Patient seen and examinined comes in with urinary retention, s/p foey no major complaints at this time AFVSS Cor: RSR, No murmurs, No gallops Lungs: Clear to P&A Abd: Soft, Normal bowel sounds, No organomegaly Ext:No significant edema Labs/meds reviewed A/P Sacral mass most consistent with a malignancy and sclerotic and lytic bone lesions could be consistent with prostate Ca His LFT abnormalities may be due to liver mets and the increase in ALP is due to bone involvement -MRI L spine reviewed -continue Decadron to releive the edema +PPI -discussed with neurosurgery and IR ---for bone biopsy --Rad Onc consult -f/v tumor markers inc. PSA, CEA, CA19-9, LDH - also rt. femur neck lesion--impending fx--ortho and rad-onc consult
[2018-01-20] MEDS: DEXAMETHASONE 4 MG TABLET (FP) PO SCH ×3 (06:03→22:59)
[2018-01-20] MEDS: HEPARIN NA (PORCINE) 5,000 UNITS/ML 1ML VIAL SQ SCH (06:03)
[2018-01-20 08:43] LABS: HEMATOCRIT 36.9 % (35.4-49); HEMOGLOBIN 12.1 GM/dL (11.7-16.9); MCH 28.7 pg (25.7-33.7); MCHC 32.9 g/dl (32.0-35.9); MEAN CELL VOLUME 87.4 fl (80-96); MEAN PLT VOLUME 7.9 fl (7.5-11.1); PLATELET COUNT 284 K/MM3 (134-434); RBC 4.22 M/mm3 (4.00-5.60); RDW 14.2 % (11.9-15.9); WHITE BLOOD COUNT 8.9 K/mm3 (4.0-10.0)
[2018-01-20 08:57] LABS: INR 1.08 (0.82-1.09); PROTHROMBIN TIME (PATIENT) 12.2 SEC (9.7-13.0)
[2018-01-20 09:00] LABS: ACTIVATED PTT 60.6 SECONDS (25.2-36.5)
[2018-01-20] MEDS ORDERED: PT OWN MED DRAWER 7, Y5N ONE (09:04)
[2018-01-20] MEDS ORDERED: DEXTROSE 5%-WATER - 50 ML IVPB ONE (09:04)
[2018-01-20] MEDS ORDERED: cefTRIAXone SODIUM 1 GM VIAL ONE (09:04)
[2018-01-20 09:09] LABS: ALBUMIN 2.4 g/dl (3.4-5.0); ANION GAP 5 (8-16); BILIRUBIN,TOTAL 0.3 mg/dL (0.2-1.0); BLOOD UREA NITROGEN 26 mg/dL (7-18); CALCIUM 8.3 mg/dL (8.5-10.1); CHLORIDE 105 mmol/L (98-107); CO2 28 mmol/L (21-32); CREATININE 0.9 mg/dL (0.7-1.3); GLUCOSE,RANDOM 111 mg/dL (74-106); POTASSIUM 4.7 mmol/L (3.5-5.1); SGOT/AST 30 U/L (15-37); SGPT/ALT 16 U/L (12-78); SODIUM 138 mmol/L (136-145); TOT PROT 6.2 g/dl (6.4-8.2)
[2018-01-20 09:10] LABS: ALK PHOS 387 U/L (45-117)
[2018-01-20] MEDS: CEFTRIAXONE 1 GM in DEXTROSE 5%-WATER - 50 ML IVPB SCH (09:26)
[2018-01-20] MEDS: ENALAPRIL MALEATE 10 MG TABLET (FP) PO SCH (09:28)
[2018-01-20] MEDS: PATIENT'S OWN MEDICATION (NON-FORMULARY) (Dexlansoprazole [Dexilant] 60 MG) PO SCH (09:29)
[2018-01-20] MEDS: AMOXICILLIN 500 MG CAPSULE (FP) PO SCH ×2 (09:29→22:59)
[2018-01-20] MEDS: CLARITHROMYCIN 500 MG PO SCH ×2 (09:30→23:00)
[2018-01-20] MEDS: POLYETHYLENE GLYCOL 3350 119 GM BTL PO SCH (09:40)
--- NOTE | 2018-01-20 11:35 | PN ---
Physical Exam: SUBJECTIVE: Patient seen and examined at bedside. No complaints overnight. Back pain controlled. Pt still admits to decreased sensation in R big toe. Admits to eating and sleeping well. Denies fever/chill, nausea/vomiting. OBJECTIVE: Vital Signs Period Temp Pulse Resp BP Sys/Tapia Pulse Ox Last 24 Hr 97.8 F-98.5 F 74-99 18-20 123-142/72-80 97-97 GENERAL: NAD. AAOx3 HEAD: AT/NC NECK: Supple, no JVD or LAD LUNGS: CTA B/L. Symmetric chest rise. No wheezes, rhonchi, or rales appreciated HEART: RRR. Normal S1, S2. No murmurs, rubs, or gallops appreciated. ABDOMEN: Soft NT/ND. Normoactive bowel sounds in all 4Qs. No masses or deformities. : Cui in place. MUSCULOSKELETAL: 5/5 motor strength on U/L B/L extremities; No peripheral edema noted. NEUROLOGICAL: Cranial nerves II-XII intact. Normal speech. PSYCHIATRIC: Cooperative. Good eye contact. Appropriate mood and affect. SKIN: Warm, dry, normal turgor, no rashes or lesions noted, normal capillary refill. Laboratory Results - last 24 hr 01/17/18 01/17/18 01/18/18 07:50 08:00 06:53 WBC RBC Hgb Hct MCV MCH MCHC RDW Plt Count MPV PT with INR INR PTT (Actin FS) Sodium Potassium Chloride Carbon Dioxide Anion Gap BUN Creatinine Creat Clearance w eGFR Random Glucose Calcium Total Bilirubin AST ALT Alkaline Phosphatase Total Protein Albumin Carcinoembryonic Ag 2.3 CA 19-9 Antigen 19 Prostate Specific Ag 2719.00 H 01/20/18 01/20/18 01/20/18 07:30 07:30 07:30 WBC 8.9 RBC 4.22 Hgb 12.1 Hct 36.9 MCV 87.4 MCH 28.7 MCHC 32.9 RDW 14.2 Plt Count 284 D MPV 7.9 PT with INR 12.20 INR 1.08 PTT (Actin FS) 60.6 H Sodium 138 Potassium 4.7 Chloride 105 Carbon Dioxide 28 Anion Gap 5 L BUN 26 H Creatinine 0.9 Creat Clearance w eGFR > 60 Random Glucose 111 H Calcium 8.3 L Total Bilirubin 0.3 AST 30 D ALT 16 Alkaline Phosphatase 387 H D Total Protein 6.2 L Albumin 2.4 L Carcinoembryonic Ag CA 19-9 Antigen Prostate Specific Ag Active Medications Generic Name Dose Route Start Last Admin Trade Name Trudy PRN Reason Stop Dose Admin Acetaminophen 650 mg 01/17/18 04:24 01/17/18 21:44 Tylenol - PO 650 mg Q4H PRN Administration PAIN LEVEL 1-5 Amoxicillin 1,000 mg 01/17/18 13:15 01/20/18 09:29 Amoxicillin - PO 1,000 mg BID WOJCIECH Administration Dexamethasone 4 mg 01/17/18 22:00 01/20/18 06:03 Decadron - PO 01/21/18 23:59 4 mg TID WOJCIECH Administration Enalapril Maleate 10 mg 01/18/18 10:00 01/20/18 09:28 Vasotec - PO 10 mg DAILY WOJCIECH Administration Heparin Sodium (Porcine) 5,000 unit 01/17/18 06:00 01/20/18 06:03 Heparin - SQ 5,000 unit TID WOJCIECH Administration Ceftriaxone Sodium 1 gm/ 50 mls @ 100 mls/hr 01/18/18 10:00 01/20/18 09:26 Dextrose IVPB 100 mls/hr DAILY WOJCIECH Administration Protocol Patient's Own 500 mg 01/17/18 22:00 01/20/18 09:30 Medication (Non- PO 500 mg Formulary) ( BID WOJCIECH Administration Clarithromycin [ Clarithromycin] 500 Mg) Non-Formulary Medication 60 mg 01/17/18 20:00 01/20/18 09:29 Dexlansoprazole [Dexilant] PO 60 mg DAILY WOJCIECH Administration Polyethylene Glycol 17 gm 01/17/18 10:00 01/20/18 09:40 Miralax (For Daily Use) - PO Not Given DAILY WOJCIECH CT Lumbar spine (01/16/18): mixed lytic & sclerotic masses in lumbar vertebral body suggesting clinical hx of prostate neoplasm; mottles lytic masses in R SI articulation and sacrum CT chest (01/19/18): very small L pleural effusion seen which has developed since lumbar spine CT; b/l upper lobe bronchiectasis noted w/ associated bronchial wall thickening CT A/P (01/19/18): Prostate gland lobulated enlargement w/ several periprostatic soft tissue nodules due to direct extracapsular dz vs. LAD; Mild thickening of ventral and L lateral jimenes of lower rectum possibly 2/2 contiguous involvement from prostate neoplastic dz; Extensive multifocal osseous metastatic neoplstic dz noted principally including sacrum w/ associated neoplastic soft tissue infiltration of mid to lower aspect of sacral canal. 5.4cm heterogeneous soft tissue lesion noted within R sciatic notch. Focal neoplastic dz involving R femoral neck. Pt may be at risk for pathologic fracture at site. Consider ortho consult. ASSESSMENT/PLAN: 77M pmhx HTN, BPH, +H. Pylori (currently being treated), lumbar back pain who was admitted for urinary retention. #prostate cx/urinary retention/hx of BPH -cont cui catheter -spoke to Dr. Sarmiento - will be seeing patient this Fri. He will be performing a prostate biopsy. Pt currently on Ceftriaxone 1g in Dex 50 cc @ 100cc/hr #lumbar back pain 2/2 to metastatic disease, prostate cx - Bone biopsy scheduled in the AM tomorrow with Dr. Scott; Hep SubQ held, NPO after midnight for procedure. - possible lumbar nerve impingement vs. prostate cx w/ mets to bone as the cause of pain - As per Neuro, cont Decadron 10 mg PO q6 to relieve the edema +PPI - pain controlled today. - As per neurosurg, bone biopsy suggested via percutaenous bx w/ IR. Possible surgical decompression may be needed, but neurosurg has agreed w/ family to avoid surgery first and obtain bone biopsy. - PSA 2719, CEA 2.3, CA19-9 19, LDH - Tylenol 650 q4h PRN for pain #PUD +H. Pylori - cont home meds - currently on Amoxicillin 1000 mg PO BID, Clarithromycin 500 mg PO BID, Dexlansoprazole 60 mg PO QD #constipation - Miralax 17g PO QD #DVT ppx - Heparin 5000U SQ TID held for procedure tomorrow Visit type - Emergency Visit Emergency Visit: No - New Patient This patient is new to me today: No - Critical Care Critical Care patient: No
--- NOTE | 2018-01-20 13:54 | CON.GU ---
Consult Consult Specialty:: Referred by:: Medicine Reason for Consultation:: r/o prostate cancer - History of Present Illness Chief Complaint: metatstatic cancer History of Present Illness: 77 year old male with widely metastatic cancer without a primary diagnosis. The pattern appears consistent with prostate cancer, and his PSA is 2719. He has no known previous history - History Source History Provided By: Patient, Medical Record - Past Medical History Renal/: No: Renal Failure, Renal Inusuff, BPH, Cancer, Hematuria, Hemodialysis , Neurogenic Bladder, Renal Calculi, UTI, Other - Alcohol/Substance Use Hx Alcohol Use: No - Smoking History Smoking history: Never smoked Have you smoked in the past 12 months: No Home Medications - Allergies Allergies/Adverse Reactions: Allergies Allergy/AdvReac Type Severity Reaction Status Date / Time No Known Allergies Allergy Verified 01/16/18 22:29 - Home Medications Home Medications: Ambulatory Orders Amoxicillin - [Amoxicillin 500mg Capsule -] 1,000 mg PO BID 01/16/18 Clarithromycin 1,000 mg PO BID 01/16/18 Dexlansoprazole [Dexilant] 60 mg PO BID 01/16/18 Enalapril Maleate [Vasotec -] 10 mg PO DAILY 01/16/18 Review of Systems - Review of Systems Constitutional: reports: Unintentional Wgt. Loss Physical Exam- Vital Signs: Vital Signs Temperature 98.1 F 01/20/18 09:25 Pulse Rate 88 01/20/18 09:25 Respiratory Rate 18 01/20/18 09:25 Blood Pressure 128/72 01/20/18 09:25 O2 Sat by Pulse Oximetry (%) 97 01/20/18 09:00 Gastrointestinal: Yes: WNL, Normal Bowel Sounds Prostate Exam: Yes: Hard Labs: CBC, BMP 01/20/18 07:30 01/20/18 07:30 Problem List - Problems (1) Elevated prostate specific antigen greater than or equal to 20 ng/ml Assessment/Plan: plan for bedside prostate biopsy on 01/21/18 Code(s): R97.20 - ELEVATED PROSTATE SPECIFIC ANTIGEN [PSA]
--- NOTE | 2018-01-20 15:32 | CON.ORTH ---
Consult Reason for Consultation:: right femoral neck lesion - Past Medical History Renal/: No: Renal Failure, Renal Inusuff, BPH, Cancer, Hematuria, Hemodialysis , Neurogenic Bladder, Renal Calculi, UTI, Other - Alcohol/Substance Use Hx Alcohol Use: No - Smoking History Smoking history: Never smoked Have you smoked in the past 12 months: No Home Medications - Allergies Allergies/Adverse Reactions: Allergies Allergy/AdvReac Type Severity Reaction Status Date / Time No Known Allergies Allergy Verified 01/16/18 22:29 - Home Medications Home Medications: Ambulatory Orders Amoxicillin - [Amoxicillin 500mg Capsule -] 1,000 mg PO BID 01/16/18 Clarithromycin 1,000 mg PO BID 01/16/18 Dexlansoprazole [Dexilant] 60 mg PO BID 01/16/18 Enalapril Maleate [Vasotec -] 10 mg PO DAILY 01/16/18 Physical Exam for Ortho Vital Signs: Vital Signs Temperature 98.1 F 01/20/18 14:09 Pulse Rate 91 H 01/20/18 14:09 Respiratory Rate 20 01/20/18 14:09 Blood Pressure 122/88 01/20/18 14:09 O2 Sat by Pulse Oximetry (%) 97 01/20/18 09:00 Labs: CBC, BMP 01/20/18 07:30 01/20/18 07:30 INR, PTT INR 1.08 (0.82-1.09) 01/20/18 07:30 - Lower Extremity Hip: Yes: Exam WNL (nvi), Right Imaging - Results Cat Scan: Report Reviewed, Image Reviewed MRI: Report Reviewed, Image Reviewed Assessment/Plan 77M with pmhx of HTN, BPH, +H. Pylori and currently being treated, lower back pain admitted for urinary retention. He admits that the urinary retention had started months ago and progressively got worse last night where he was no able to empty his bladder at all. Had MRI and CT scans which showed multiple lytic lesions in LS spine, pelvis and right femoral neck. Currently pt denies any pain or dysfunction in the hip. a/p- Right femoral neck lytic lesion, multiple lytic lesions Risks and benefits were d/w pt and family in detail d/w in detail with Dr. Farmer Recommend observation and RT, family understands and agrees, aware that lesion may cause fx f/u bone biopsy Neuro and Urology f/u wbat will follow d/w Dr. Farmer
--- NOTE | 2018-01-20 18:18 | PN ---
Progress Note (short form) - Note Progress Note: Radiation Oncology (consult dictated) 77yo w clinical picture of widespread bone metastases likely from prostate cancer. Most notably there is an 8-cm right presacral mass impinging the nerve roots associated with urinary retention, and bilateral pelvic disease including the acetabulae and right femoral neck at risk of pathologic fractures. Agree with biopsy for tissue to confirm dx. Would offer palliative/postop RT to sacral mass and hips/prox femur pending surgical evals for decompression and/or stabilization. Discussed with patient who agrees.
--- NOTE | 2018-01-20 19:20 | CONS ---
DATE OF CONSULTATION: 01/20/2018 REASON FOR CONSULTATION: Widespread metastases with large right presacral mass and right femoral neck lesion. REFERRING PHYSICIAN: Zahira Posadas M.D. HISTORY OF PRESENT ILLNESS: The patient is a 77-year-old gentleman from [place] who has had a history of urinary hesitancy and BPH with increasing urinary difficulty over the past week as well as longstanding back pain. He presented with an acute urinary retention and had the El placed. His workup thus far has demonstrated widespread osteolytic and blastic lesions involving the thoracolumbosacral spine, pelvis, and proximal femurs, notably with an 8.7 cm right presacral mass associated with nerve root compression and a right femoral neck lesion without definite pathologic fracture. The bilateral acetabula are also involved. The patient reports bilateral hip pain when standing up as well as numbness in the right sole of the foot. He has commenced Decadron and a biopsy is planned. The PSA is 2719. He denies weakness in the arms and legs and has had no urinary or bowel incontinence. PAST MEDICAL HISTORY: No history of radiation therapy or collagen vascular disease. He has a history of hypertension, benign prostatic hypertrophy, peripheral vascular disease, H. pylori positive PUD. PAST SURGICAL HISTORY: Cataracts and tonsillectomy. ALLERGIES: No known drug allergies. CURRENT MEDICATIONS: Erythromycin, Dexilant, Vasotec, amikacin, amoxicillin, ceftriaxone, Miralax, Decadron 4 mg t.i.d. SOCIAL HISTORY: He is , resides in [place], receives his medical care in [place]. His lives in [place] and his 2 daughters live in the [place] area. There is no history of tobacco or alcohol use. FAMILY HISTORY: No history of malignancy. REVIEW OF SYSTEMS: As noted above. PHYSICAL EXAMINATION: General: Well appearing, well nourished, thin Murphy male in no acute distress. Vital Signs: Height 5 feet 10 inches, weight 125 pounds, temperature 98.1, blood pressure 128/72, pulse 88, respiratory rate 18, Sao2 of 97% room air. HEENT: Moist mucous membranes. Anicteric sclerae. Clear oral cavity without mucositis or thrush Neck: No adenopathy. Chest: Lungs are clear bilaterally without wheezing, rhonchi, rales. Cardiovascular: Regular. Abdomen: Soft, nontender. Nondistended. Normoactive bowel sounds. No organomegaly, intraabdominal mass, or inguinal adenopathy. Extremities: Normal range of motion without lymphedema. Musculoskeletal: No spine or CVA tenderness. Genitourinary: El in place. No scrotal mass. Extremities: No lymphedema. Neurologic: Nonfocal. LABORATORY DATA: WBC 8.9, hemoglobin 12.1, platelet count 284,000. Electrolytes within normal limits. BUN 26, creatinine 0.9, calcium 8.3, alkaline phosphatase 387, AST 30, ALT 16, total bilirubin 0.3, albumin 2.4, PSA 2719, CA19-9 of 19. CEA 2.3. INR 1.08. PTT 60.6. RADIOLOGIC DATA: CT of the lumbar spine, chest, abdomen, and pelvis as noted in the HPI. MRI of the lumbosacral spine as noted in the HPI. IMPRESSION: A 77-year-old gentleman with probable metastatic prostate cancer associated with a very large right presacral mass impinging on the nerve roots, with resulting urinary retention. There is also significant disease in the pelvis and proximal femur most notably in the acetabulae and right femoral neck. A bone biopsy is planned. He is stable on Decadron. I agree with obtaining tissue to confirm his diagnosis. He would be a candidate for palliative radiation therapy directed to the presacral mass to help relieve the compression as well as the bilateral hips/ femoral neck to reduce the risk of pathologic fracture and pain progression. Surgical evaluations ongoing to determine if he would first benefit from surgical decompression and/ or stabilization. PLAN: Cont decadron, pain management. Await pathologic diagnosis. Surgical evals. I appreciate the opportunity to participate in the care of this patient. RENARD VO M.D. [id number] MTDD
--- NOTE | 2018-01-20 22:14 | PN ---
Teaching Attending Note Name of Resident: Rosetta Le ATTENDING PHYSICIAN STATEMENT I saw and evaluated the patient. I reviewed the resident's note and discussed the case with the resident. I agree with the resident's findings and plan as documented. SUBJECTIVE: Patient is comfortable with no acute distress. OBJECTIVE: Vital Signs Temperature 98.6 F 01/20/18 18:42 Pulse Rate 92 H 01/20/18 18:42 Respiratory Rate 18 01/20/18 18:42 Blood Pressure 140/94 01/20/18 18:42 O2 Sat by Pulse Oximetry (%) 97 01/20/18 09:00 CBCD WBC 8.9 K/mm3 (4.0-10.0) 01/20/18 07:30 RBC 4.22 M/mm3 (4.00-5.60) 01/20/18 07:30 Hgb 12.1 GM/dL (11.7-16.9) 01/20/18 07:30 Hct 36.9 % (35.4-49) 01/20/18 07:30 MCV 87.4 fl (80-96) 01/20/18 07:30 MCHC 32.9 g/dl (32.0-35.9) 01/20/18 07:30 RDW 14.2 % (11.9-15.9) 01/20/18 07:30 Plt Count 284 K/MM3 (134-434) D 01/20/18 07:30 MPV 7.9 fl (7.5-11.1) 01/20/18 07:30 CMP Sodium 138 mmol/L (136-145) 01/20/18 07:30 Potassium 4.7 mmol/L (3.5-5.1) 01/20/18 07:30 Chloride 105 mmol/L (98-107) 01/20/18 07:30 Carbon Dioxide 28 mmol/L (21-32) 01/20/18 07:30 Anion Gap 5 (8-16) L 01/20/18 07:30 BUN 26 mg/dL (7-18) H 01/20/18 07:30 Creatinine 0.9 mg/dL (0.7-1.3) 01/20/18 07:30 Creat Clearance w eGFR > 60 (>60) 01/20/18 07:30 Random Glucose 111 mg/dL (74-106) H 01/20/18 07:30 Calcium 8.3 mg/dL (8.5-10.1) L 01/20/18 07:30 Total Bilirubin 0.3 mg/dL (0.2-1.0) 01/20/18 07:30 AST 30 U/L (15-37) D 01/20/18 07:30 ALT 16 U/L (12-78) 01/20/18 07:30 Alkaline Phosphatase 387 U/L (45-117) H D 01/20/18 07:30 Total Protein 6.2 g/dl (6.4-8.2) L 01/20/18 07:30 Albumin 2.4 g/dl (3.4-5.0) L 01/20/18 07:30 Current Medications Generic Name Dose Route Start Last Admin Trade Name Freq PRN Reason Stop Dose Admin Acetaminophen 650 mg 01/17/18 04:24 01/17/18 21:44 Tylenol - PO 650 mg Q4H PRN Administration PAIN LEVEL 1-5 Amoxicillin 1,000 mg 01/17/18 13:15 01/20/18 09:29 Amoxicillin - PO 1,000 mg BID WOJCIECH Administration Dexamethasone 4 mg 01/17/18 22:00 01/20/18 13:59 Decadron - PO 01/21/18 23:59 4 mg TID WOJCIECH Administration Enalapril Maleate 10 mg 01/18/18 10:00 01/20/18 09:28 Vasotec - PO 10 mg DAILY WOJCIECH Administration Ceftriaxone Sodium 1 gm/ 50 mls @ 100 mls/hr 01/18/18 10:00 01/20/18 09:26 Dextrose IVPB 100 mls/hr DAILY WOJCIECH Administration Protocol Amikacin Sulfate 500 mg/ 102 mls @ 102 mls/hr 01/21/18 07:00 Sodium Chloride IVPB 01/21/18 07:59 ONCE ONE Patient's Own 500 mg 01/17/18 22:00 01/20/18 09:30 Medication (Non- PO 500 mg Formulary) ( BID WOJCIECH Administration Clarithromycin [ Clarithromycin] 500 Mg) Non-Formulary Medication 60 mg 01/17/18 20:00 01/20/18 09:29 Dexlansoprazole [Dexilant] PO 60 mg DAILY WOJCIECH Administration Polyethylene Glycol 17 gm 01/17/18 10:00 01/20/18 09:40 Miralax (For Daily Use) - PO Not Given DAILY WOJCIECH Sodium Phosphate 133 ml 01/21/18 07:00 Fleet Adult Rectal Enema - MD 01/21/18 07:01 ONCE ONE Home Medications Medication Instructions Recorded Amoxicillin - [Amoxicillin 500mg 1,000 mg PO BID 01/16/18 Capsule -] Clarithromycin 1,000 mg PO BID 01/16/18 Dexlansoprazole [Dexilant] 60 mg PO BID 01/16/18 Enalapril Maleate [Vasotec -] 10 mg PO DAILY 01/16/18 01/17/18 15:30 Blood - Peripheral Venous Blood Culture - Preliminary NO GROWTH OBTAINED AFTER 24 HOURS, INCUBATION TO CONTINUE FOR 4 DAYS. 01/17/18 15:15 Blood - Peripheral Venous Blood Culture - Preliminary NO GROWTH OBTAINED AFTER 24 HOURS, INCUBATION TO CONTINUE FOR 4 DAYS. 01/16/18 22:50 Urine - Urine El Urine Culture - Final NO GROWTH OBTAINED CT Lumbar spine (01/16/18): mixed lytic & sclerotic masses in lumbar vertebral body suggesting clinical hx of prostate neoplasm; mottles lytic masses in R SI articulation and sacrum ASSESSMENT AND PLAN: Patient is a 77 year old male who has a history of urinary difficulties for several months in terms of difficulty emptying his bladder. He presents to the [facility] ER with a history of chronic back pain and 5 days of significant difficulty emptying his bladder #Acute Urinary retention and bone pain - CT scan showed lumbar lytic and sclerotic bone lesions as well as an enlarged prostate with a level above 20 , plan for bedside prostate biopsy on 01/21/18 By .. #Bone metastases likely from prostate cancer. 8-cm right presacral mass impinging the nerve roots associated with urinary retention, and bilateral pelvic disease including the acetabulae and right femoral neck at risk of pathologic fractures.Bx for tissue to confirm dx. rtx oncology consult for palliative/postop RT to sacral mass and hips/prox femur.f/u bone biopsy as per orhto # PUD with H. Pylori infection - continue two week course of antibiotics regimen. # Constipation - Treat with Miralax and liberal oral fluids. DVT prophylaxis - Heparin 5000u sq tid. Advance directives - Full code
[2018-01-21] MEDS: DEXAMETHASONE 4 MG TABLET (FP) PO SCH ×3 (06:29→23:00)
[2018-01-21] MEDS ORDERED: SODIUM CHLORIDE IVPB ONE (07:00)
[2018-01-21] MEDS ORDERED: AMIKACIN SO4 IVPB ONE (07:00)
[2018-01-21] MEDS ORDERED: SODIUM PHOSPHATE/NA BIPHOS 133 ML ENEMA PR ONE (07:00)
[2018-01-21 07:53] LABS: HEMATOCRIT 35.3 % (35.4-49); HEMOGLOBIN 11.9 GM/dL (11.7-16.9); LYMPH % 8.1 % (8-40); MCH 29.3 pg (25.7-33.7); MCHC 33.8 g/dl (32.0-35.9); MEAN CELL VOLUME 86.9 fl (80-96); MEAN PLT VOLUME 7.9 fl (7.5-11.1); MONO % 6.8 % (3.8-10.2); NEUT % 85.1 % (42.8-82.8); PLATELET COUNT 288 K/MM3 (134-434); RBC 4.07 M/mm3 (4.00-5.60); RDW 14.1 % (11.9-15.9); WHITE BLOOD COUNT 6.6 K/mm3 (4.0-10.0)
[2018-01-21 08:10] LABS: CHLORIDE 103 mmol/L (98-107); POTASSIUM 4.5 mmol/L (3.5-5.1); SODIUM 138 mmol/L (136-145)
[2018-01-21 08:19] LABS: ALBUMIN 2.5 g/dl (3.4-5.0); ALK PHOS 376 U/L (45-117); ANION GAP 7 (8-16); BILIRUBIN,TOTAL 0.4 mg/dL (0.2-1.0); BLOOD UREA NITROGEN 26 mg/dL (7-18); CALCIUM 8.4 mg/dL (8.5-10.1); CO2 28 mmol/L (21-32); GLUCOSE,RANDOM 108 mg/dL (74-106); SGOT/AST 30 U/L (15-37); SGPT/ALT 22 U/L (12-78); TOT PROT 6.3 g/dl (6.4-8.2)
[2018-01-21] MEDS ORDERED: DEXTROSE 5%-WATER - 50 ML IVPB ONE (09:29)
[2018-01-21] MEDS ORDERED: cefTRIAXone SODIUM 1 GM VIAL ONE ×2 (09:29→15:02)
[2018-01-21] MEDS: PATIENT'S OWN MEDICATION (NON-FORMULARY) (Dexlansoprazole [Dexilant] 60 MG) PO SCH (09:32)
[2018-01-21] MEDS: ENALAPRIL MALEATE 10 MG TABLET (FP) PO SCH (09:32)
[2018-01-21] MEDS: CLARITHROMYCIN 500 MG PO SCH ×2 (09:32→23:01)
[2018-01-21] MEDS: AMOXICILLIN 500 MG CAPSULE (FP) PO SCH (09:33)
[2018-01-21] MEDS: POLYETHYLENE GLYCOL 3350 119 GM BTL PO SCH (10:26)
--- NOTE | 2018-01-21 14:29 | PN ---
Physical Exam: SUBJECTIVE: Patient seen and examined at bedside. No new acute complaints this AM. Afebrile overnight. Pt resting well. Pain controlled. Bone biopsy scheduled for tomorrow. OBJECTIVE: Vital Signs Period Temp Pulse Resp BP Sys/Tapia Pulse Ox Last 24 Hr 97.9 F-98.8 F 75-92 18-20 116-140/71-94 96-98 GENERAL: NAD. AAOx3 HEAD: AT/NC NECK: Supple, no JVD or LAD LUNGS: CTA B/L. Symmetric chest rise. No wheezes, rhonchi, or rales appreciated HEART: RRR. Normal S1, S2. No murmurs, rubs, or gallops appreciated. ABDOMEN: Soft NT/ND. Normoactive bowel sounds in all 4Qs. No masses or deformities. : Cui in place. MUSCULOSKELETAL: 5/5 motor strength on U/L B/L extremities; No peripheral edema noted. NEUROLOGICAL: Cranial nerves II-XII intact. Normal speech. PSYCHIATRIC: Cooperative. Good eye contact. Appropriate mood and affect. SKIN: Warm, dry, normal turgor, no rashes or lesions noted, normal capillary refill. Laboratory Results - last 24 hr 01/21/18 01/21/18 01/21/18 06:00 06:00 06:00 WBC 6.6 RBC 4.07 Hgb 11.9 Hct 35.3 L MCV 86.9 MCH 29.3 MCHC 33.8 RDW 14.1 Plt Count 288 MPV 7.9 Absolute Neuts (auto) 5.6 Neutrophils % 85.1 H Lymphocytes % 8.1 Monocytes % 6.8 Eosinophils % 0.0 Basophils % 0.0 Nucleated RBC % 0 Fibrinogen 394.0 Sodium 138 Potassium 4.5 Chloride 103 Carbon Dioxide 28 Anion Gap 7 L BUN 26 H Creatinine 1.0 Creat Clearance w eGFR > 60 Random Glucose 108 H Calcium 8.4 L Total Bilirubin 0.4 AST 30 ALT 22 D Alkaline Phosphatase 376 H D Total Protein 6.3 L Albumin 2.5 L Active Medications Generic Name Dose Route Start Last Admin Trade Name Freq PRN Reason Stop Dose Admin Acetaminophen 650 mg 01/17/18 04:24 01/17/18 21:44 Tylenol - PO 650 mg Q4H PRN Administration PAIN LEVEL 1-5 Amoxicillin 1,000 mg 01/17/18 13:15 01/21/18 09:33 Amoxicillin - PO 1,000 mg BID WOJCIECH Administration Dexamethasone 4 mg 01/17/18 22:00 01/21/18 13:49 Decadron - PO 01/21/18 23:59 4 mg TID WOJCIECH Administration Enalapril Maleate 10 mg 01/18/18 10:00 01/21/18 09:32 Vasotec - PO 10 mg DAILY WOJCIECH Administration Ceftriaxone Sodium 1,000 mg/ 50 mls @ 100 mls/hr 01/21/18 14:00 Dextrose IVPB 01/22/18 10:29 DAILY WOJCIECH Patient's Own 500 mg 01/17/18 22:00 01/21/18 09:32 Medication (Non- PO 500 mg Formulary) ( BID WOJCIECH Administration Clarithromycin [ Clarithromycin] 500 Mg) Non-Formulary Medication 60 mg 01/17/18 20:00 01/21/18 09:32 Dexlansoprazole [Dexilant] PO 60 mg DAILY WOJCIECH Administration Polyethylene Glycol 17 gm 01/17/18 10:00 01/21/18 10:26 Miralax (For Daily Use) - PO Not Given DAILY WOJCIECH CT Lumbar spine (01/16/18): mixed lytic & sclerotic masses in lumbar vertebral body suggesting clinical hx of prostate neoplasm; mottles lytic masses in R SI articulation and sacrum CT chest (01/19/18): very small L pleural effusion seen which has developed since lumbar spine CT; b/l upper lobe bronchiectasis noted w/ associated bronchial wall thickening CT A/P (01/19/18): Prostate gland lobulated enlargement w/ several periprostatic soft tissue nodules due to direct extracapsular dz vs. LAD; Mild thickening of ventral and L lateral jimenes of lower rectum possibly 2/2 contiguous involvement from prostate neoplastic dz; Extensive multifocal osseous metastatic neoplstic dz noted principally including sacrum w/ associated neoplastic soft tissue infiltration of mid to lower aspect of sacral canal. 5.4cm heterogeneous soft tissue lesion noted within R sciatic notch. Focal neoplastic dz involving R femoral neck. Pt may be at risk for pathologic fracture at site. Consider ortho consult. ASSESSMENT/PLAN: 77M pmhx HTN, BPH, +H. Pylori (currently being treated), lumbar back pain who was admitted for urinary retention w/ lumbar back pain. #prostate cx/urinary retention/hx of BPH -cont cui catheter -Prostate bx today w/ Dr. Sarmiento. Pt currently on Ceftriaxone 1g in Dex 50 cc @ 100cc/hr, Day 3, cont to Day 5. #lumbar back pain 2/2 to metastatic disease highly suspicious for prostate cx - Bone biopsy scheduled 01/22 w/ Dr. Scott; Hep SubQ held, NPO after midnight for procedure. - possible lumbar nerve impingement vs. prostate cx w/ mets to bone as the cause of pain - As per Neuro, cont Decadron 10 mg PO q6 to relieve edema +PPI - pain controlled today. - As per rad onc, agree w/ biopsy for tissue to confirm diagnosis; would offer palliative/postop RT to sacral mass pending - As per ortho, rec obs and RT, WBAT - PSA 2719, CEA 2.3, CA19-9 19, LDH - Tylenol 650 q4h PRN for pain #PUD +H. Pylori - cont home meds - currently on Amoxicillin 1000 mg PO BID, Clarithromycin 500 mg PO BID, Dexlansoprazole 60 mg PO QD #constipation - Miralax 17g PO QD #DVT ppx - Heparin 5000U SQ TID held for procedure tomorrow FEN - no fluids given, encourage oral hydration - recheck electrolytes in AM - low sodium diet, NPO after midnight Visit type - Emergency Visit Emergency Visit: No - New Patient This patient is new to me today: No - Critical Care Critical Care patient: No
--- NOTE | 2018-01-21 15:03 | PN ---
Progress Note (short form) - Note Progress Note: Ortho Pt seen and examined- denies any pain in the right hip PE WNL, nvi a/p Orthopedically stable for bone biopsy tomorrow RT No further ortho intervention at this time d/w Dr. Farmer
[2018-01-21] MEDS: CEFTRIAXONE 1 GM in DEXTROSE 5%-WATER - 50 ML IVPB SCH (15:17)
--- NOTE | 2018-01-21 19:43 | PN ---
Teaching Attending Note Name of Resident: Rosetta Le ATTENDING PHYSICIAN STATEMENT I saw and evaluated the patient. I reviewed the resident's note and discussed the case with the resident. I agree with the resident's findings and plan as documented. SUBJECTIVE: No fever or chills. No abd pain. no back pain, no weakness in LE OBJECTIVE: NAD Cv: RRR Lungs: CTAB ext : michael abebe Anibal of LE : strength 5/5 proximally and distally 3+ knee jerk b/l ASSESSMENT AND PLAN: Unfortunate 77 y/o man with h/o HTN, Helicobacter pylori and BPH who presented with urinary retention and was found to have bone mets with nerve compression . 1- Urinary retention : due to compromise of sacral canal due to pre-sacral mass. - cont cui 2- pre-sacral mass and bone mets: possible prostate cancer. - s/p prostate Bx today - for bone bx tomorrow - radiation treatment after bx . - no ortho intervention 3- possible RASTA PNA; fever on admission , with mild leukocytosis , . fever resolved after abx. - cont ceftriaxone day 4/5. - no evidence of UTI 4- recent diagnosis of HP : - cont clarithro and PPI - hold amoxi while on ceftriaxone 5- DVT PX : was on heparin sq. held for Bx . will start lovenox after bone bx
[2018-01-22 08:19] LABS: BASO % 0.2 % (0-2.0); HEMATOCRIT 36.5 % (35.4-49); HEMOGLOBIN 12.2 GM/dL (11.7-16.9); LYMPH % 6.4 % (8-40); MCH 29.2 pg (25.7-33.7); MCHC 33.4 g/dl (32.0-35.9); MEAN CELL VOLUME 87.3 fl (80-96); MEAN PLT VOLUME 7.5 fl (7.5-11.1); MONO % 9.6 % (3.8-10.2); NEUT % 83.8 % (42.8-82.8); PLATELET COUNT 289 K/MM3 (134-434); RBC 4.18 M/mm3 (4.00-5.60); WHITE BLOOD COUNT 6.7 K/mm3 (4.0-10.0)
[2018-01-22 08:41] LABS: ALBUMIN 2.5 g/dl (3.4-5.0); ANION GAP 6 (8-16); BLOOD UREA NITROGEN 30 mg/dL (7-18); CALCIUM 8.4 mg/dL (8.5-10.1); CHLORIDE 103 mmol/L (98-107); CO2 30 mmol/L (21-32); GLUCOSE,RANDOM 111 mg/dL (74-106); POTASSIUM 4.6 mmol/L (3.5-5.1); SGOT/AST 35 U/L (15-37); SGPT/ALT 31 U/L (12-78); SODIUM 139 mmol/L (136-145)
[2018-01-22 08:44] LABS: ALK PHOS 350 U/L (45-117); BILIRUBIN,TOTAL 0.3 mg/dL (0.2-1.0); TOT PROT 6.3 g/dl (6.4-8.2)
[2018-01-22] MEDS ORDERED: cefTRIAXone SODIUM 1 GM VIAL ONE (09:12)
[2018-01-22] MEDS ORDERED: DEXTROSE 5%-WATER - 50 ML IVPB ONE (09:12)
[2018-01-22] MEDS: ENALAPRIL MALEATE 10 MG TABLET (FP) PO SCH (09:16)
[2018-01-22] MEDS: POLYETHYLENE GLYCOL 3350 119 GM BTL PO SCH (09:17)
[2018-01-22] MEDS: PATIENT'S OWN MEDICATION (NON-FORMULARY) (Dexlansoprazole [Dexilant] 60 MG) PO SCH (09:18)
[2018-01-22] MEDS: CLARITHROMYCIN 500 MG PO SCH ×2 (09:18→21:54)
[2018-01-22] MEDS: CEFTRIAXONE 1 GM in DEXTROSE 5%-WATER - 50 ML IVPB SCH (11:23)
--- NOTE | 2018-01-22 14:20 | PN ---
Physical Exam: SUBJECTIVE: Patient seen and examined at bedside. No acute events overnight. Afebrile. Pt has no complaints of pain. Denies fever/chills, nausea/vomiting. + BM this AM. OBJECTIVE: Vital Signs Period Temp Pulse Resp BP Sys/Tapia Pulse Ox Last 24 Hr 98 F-98.5 F 71-87 16-20 126-149/69-89 97-100 GENERAL: NAD. AAOx3 HEAD: AT/NC NECK: Supple, no JVD or LAD LUNGS: CTA B/L. Symmetric chest rise. No wheezes, rhonchi, or rales appreciated HEART: RRR. Normal S1, S2. No murmurs, rubs, or gallops appreciated. ABDOMEN: Soft NT/ND. Normoactive bowel sounds in all 4Qs. No masses or deformities. : Cui in place. MUSCULOSKELETAL: 5/5 motor strength on U/L B/L extremities; No peripheral edema noted. 2+ reflexes in U/L B/L extremities. NEUROLOGICAL: Cranial nerves II-XII intact. Normal speech. PSYCHIATRIC: Cooperative. Good eye contact. Appropriate mood and affect. SKIN: Warm, dry, normal turgor, no rashes or lesions noted, normal capillary refill. Laboratory Results - last 24 hr 01/22/18 01/22/18 07:00 07:00 WBC 6.7 RBC 4.18 Hgb 12.2 Hct 36.5 MCV 87.3 MCH 29.2 MCHC 33.4 RDW 14.0 Plt Count 289 MPV 7.5 Absolute Neuts (auto) 5.6 Neutrophils % 83.8 H Lymphocytes % 6.4 L D Monocytes % 9.6 Eosinophils % 0.0 Basophils % 0.2 D Nucleated RBC % 0 Sodium 139 Potassium 4.6 Chloride 103 Carbon Dioxide 30 Anion Gap 6 L BUN 30 H Creatinine 1.0 Creat Clearance w eGFR > 60 Random Glucose 111 H Calcium 8.4 L Total Bilirubin 0.3 AST 35 ALT 31 D Alkaline Phosphatase 350 H D Total Protein 6.3 L Albumin 2.5 L Active Medications Generic Name Dose Route Start Last Admin Trade Name Freq PRN Reason Stop Dose Admin Acetaminophen 650 mg 01/17/18 04:24 01/17/18 21:44 Tylenol - PO 650 mg Q4H PRN Administration PAIN LEVEL 1-5 Enalapril Maleate 10 mg 01/18/18 10:00 07/12/18 09:16 Vasotec - PO 10 mg DAILY WOJCIECH Administration Patient's Own 500 mg 01/17/18 22:00 01/22/18 09:18 Medication (Non- PO 500 mg Formulary) ( BID WOJCIECH Administration Clarithromycin [ Clarithromycin] 500 Mg) Non-Formulary Medication 60 mg 01/17/18 20:00 01/22/18 09:18 Dexlansoprazole [Dexilant] PO 60 mg DAILY WOJCIECH Administration Polyethylene Glycol 17 gm 01/17/18 10:00 01/22/18 09:17 Miralax (For Daily Use) - PO Not Given DAILY WOJCIECH ASSESSMENT/PLAN: CT Lumbar spine (01/16/18): mixed lytic & sclerotic masses in lumbar vertebral body suggesting clinical hx of prostate neoplasm; mottles lytic masses in R SI articulation and sacrum CT chest (01/19/18): very small L pleural effusion seen which has developed since lumbar spine CT; b/l upper lobe bronchiectasis noted w/ associated bronchial wall thickening CT A/P (01/19/18): Prostate gland lobulated enlargement w/ several periprostatic soft tissue nodules due to direct extracapsular dz vs. LAD; Mild thickening of ventral and L lateral jimenes of lower rectum possibly 2/2 contiguous involvement from prostate neoplastic dz; Extensive multifocal osseous metastatic neoplstic dz noted principally including sacrum w/ associated neoplastic soft tissue infiltration of mid to lower aspect of sacral canal. 5.4cm heterogeneous soft tissue lesion noted within R sciatic notch. Focal neoplastic dz involving R femoral neck. Pt may be at risk for pathologic fracture at site. Consider ortho consult. ASSESSMENT/PLAN: 77M pmhx HTN, BPH, +H. Pylori (currently being treated), lumbar back pain who was admitted for urinary retention w/ lumbar back pain. #prostate cx/urinary retention/hx of BPH -cont cui catheter -f/u prostate bx. Pt currently on Ceftriaxone 1g in Dex 50 cc @ 100cc/hr, Day 4 , cont to Day 5. #lumbar back pain 2/2 to metastatic disease highly suspicious for prostate cx; Pt's lumbar back pain is minimal now. - Bone biopsy done 01/22 w/ Dr. Scott; await results - possible lumbar nerve impingement vs. prostate cx w/ mets to bone as the cause of pain - As per Neuro, cont Decadron 10 mg PO q6 to relieve edema +PPI - pain controlled today. - As per rad onc, agree w/ biopsy for tissue to confirm diagnosis; would offer palliative/postop RT to sacral mass pending - As per ortho, rec obs and RT, WBAT - PSA 2719, CEA 2.3, CA19-9 19, LDH - Tylenol 650 q4h PRN for pain #PUD +H. Pylori - cont home meds - currently on Amoxicillin 1000 mg PO BID, Clarithromycin 500 mg PO BID, Dexlansoprazole 60 mg PO QD #constipation - Miralax 17g PO QD #DVT ppx - Heparin 5000U SQ TID held for procedure tomorrow FEN - no fluids given, encourage oral hydration - recheck electrolytes in AM - low sodium diet, NPO after midnight Visit type - Emergency Visit Emergency Visit: No - New Patient This patient is new to me today: No - Critical Care Critical Care patient: No
--- NOTE | 2018-01-22 16:16 | PN ---
Teaching Attending Note Name of Resident: Rosetta Le ATTENDING PHYSICIAN STATEMENT I saw and evaluated the patient. I reviewed the resident's note and discussed the case with the resident. I agree with the resident's findings and plan as documented. SUBJECTIVE: no fever or chills . has no back pain or LE weakness OBJECTIVE: NAD Cv: RRR Lungs: CTAB Ext: no edema Neuro of LE: strength 5/5 proximally and distally 3+ knee jerk b/l ASSESSMENT AND PLAN: Unfortunate 77 y/o man with h/o HTN, Helicobacter pylori and BPH who presented with urinary retention and was found to have bone mets with nerve compression . 1- Urinary retention : due to compromise of sacral canal due to pre-sacral mass. - cont cui 2- Pre-sacral mass and bone mets: possible prostate cancer. - s/p prostate Bx 01/21 and Bone Bx 01/22 - await results and radiation plans - no ortho intervention 3- possible RASTA PNA; no ore fever or leukocytosis - ceftriaxone day 11/15. 4- recent diagnosis of HP : - cont clarithro and PPI - resume amoxi in am 5- DVT PX : start lovenox sq
--- NOTE | 2018-01-22 21:52 | PN ---
Progress Note (short form) - Note Progress Note: Patient seen and examinined comes in with urinary retention, s/p cui no major complaints at this time AFVSS Cor: RSR, No murmurs, No gallops Lungs: Clear to P&A Abd: Soft, Normal bowel sounds, No organomegaly Ext:No significant edema Labs/meds reviewed A/P Sacral mass most consistent with a malignancy and sclerotic and lytic bone lesions biopsy resu;ts befor cconsistent with prostate Ca Urinary retention s/p biopsy of prostate and bone lesion awaiting pathology prior to palliative RT
[2018-01-23 08:01] LABS: HEMATOCRIT 36.5 % (35.4-49); HEMOGLOBIN 12.2 GM/dL (11.7-16.9); MCH 29.2 pg (25.7-33.7); MCHC 33.5 g/dl (32.0-35.9); MEAN CELL VOLUME 87.1 fl (80-96); MEAN PLT VOLUME 7.6 fl (7.5-11.1); PLATELET COUNT 278 K/MM3 (134-434); RDW 14.3 % (11.9-15.9); WHITE BLOOD COUNT 9.3 K/mm3 (4.0-10.0)
[2018-01-23 08:16] LABS: CHLORIDE 101 mmol/L (98-107); POTASSIUM 4.3 mmol/L (3.5-5.1); SODIUM 138 mmol/L (136-145)
[2018-01-23 08:35] LABS: ALBUMIN 2.5 g/dl (3.4-5.0); ALK PHOS 325 U/L (45-117); ANION GAP 10 (8-16); BILIRUBIN,TOTAL 0.3 mg/dL (0.2-1.0); BLOOD UREA NITROGEN 31 mg/dL (7-18); CALCIUM 8.3 mg/dL (8.5-10.1); CO2 27 mmol/L (21-32); GLUCOSE,RANDOM 93 mg/dL (74-106); SGOT/AST 33 U/L (15-37); SGPT/ALT 34 U/L (12-78); TOT PROT 6.1 g/dl (6.4-8.2)
[2018-01-23] MEDS ORDERED: ENOXAPARIN NA (PORCINE) 40 MG/0.4 ML DISP.SYRIN SQ SCH (10:00)
[2018-01-23] MEDS ORDERED: AMOXICILLIN 500 MG CAPSULE (FP) PO SCH (10:00)
[2018-01-23] MEDS: ENALAPRIL MALEATE 10 MG TABLET (FP) PO SCH (10:13)
[2018-01-23] MEDS: POLYETHYLENE GLYCOL 3350 119 GM BTL PO SCH (10:13)
[2018-01-23] MEDS: PATIENT'S OWN MEDICATION (NON-FORMULARY) (Dexlansoprazole [Dexilant] 60 MG) PO SCH (10:16)
[2018-01-23] MEDS: CLARITHROMYCIN 500 MG PO SCH (10:16)
--- NOTE | 2018-01-23 12:03 | PN ---
Progress Note (short form) - Note Progress Note: Patient seen and examined Diminished appetitie with 8 lb weight loss recently No significant pains , but numbness in region of buttocks and sacral notch Last Vital Signs Temp Pulse Resp BP Pulse Ox 98.2 F 88 18 120/84 99 01/23/18 08:58 01/23/18 08:58 01/23/18 08:58 01/23/18 08:58 01/23/18 09:00 HEENT: RAFAEL, EOM Intact Oropharynx: No thrush, No mucositis Cor: RSR, No murmurs, No gallops Lungs: Clear to P&A Abd: Soft, Normal bowel sounds, No organomegaly Ext:No significant edema Skin: No rashes, Integument intact El catheter Uncircumcised CBC, BMP 01/23/18 06:30 01/23/18 06:30 Current Medications Generic Name Dose Route Start Last Admin Trade Name Freq PRN Reason Stop Dose Admin Acetaminophen 650 mg 01/17/18 04:24 01/17/18 21:44 Tylenol - PO 650 mg Q4H PRN Administration PAIN LEVEL 1-5 Amoxicillin 1,000 mg 01/23/18 10:00 01/23/18 10:12 Amoxicillin - PO 1,000 mg BID WOJCIECH Administration Enalapril Maleate 10 mg 01/18/18 10:00 01/23/18 10:13 Vasotec - PO 10 mg DAILY WOJCIECH Administration Enoxaparin Sodium 40 mg 01/23/18 10:00 01/23/18 10:14 Lovenox - SQ 40 mg DAILY WOJCIECH Administration Patient's Own 500 mg 01/17/18 22:00 01/23/18 10:16 Medication (Non- PO 500 mg Formulary) ( BID WOJCIECH Administration Clarithromycin [ Clarithromycin] 500 Mg) Non-Formulary Medication 60 mg 01/17/18 20:00 01/23/18 10:16 Dexlansoprazole [Dexilant] PO 60 mg DAILY WOJCIECH Administration Polyethylene Glycol 17 gm 01/17/18 10:00 01/23/18 10:13 Miralax (For Daily Use) - PO 17 g DAILY WOJCIECH Administration Impression: Likely metastatic prostate ca with bone mets Contacted path- " biopsy still being processed " Plan:Ortho- no surgical intervention For RT and hormones pending path
--- NOTE | 2018-01-23 12:50 | OP ---
Operative Note - Note: Operative Date: 01/21/18 Pre-Operative Diagnosis: elevated PSA Operation: TRUS guided prostate biopsy Surgeon: Darin Burks Anesthesia: Local Specimens Removed: 6 core biopsies
--- NOTE | 2018-01-23 12:52 | PN ---
Progress Note (short form) - Note Progress Note: prostate biopsy shows high volume G9. proceed with casodex, Lupron, chemotherapy. Problem List - Problems (1) Elevated prostate specific antigen greater than or equal to 20 ng/ml Code(s): R97.20 - ELEVATED PROSTATE SPECIFIC ANTIGEN [PSA]
[2018-01-23 13:09] LABS: ACANTHOCYTES 0; ANISOCYTOSIS 0; HELMET CELLS 0; HOWELL-JOLLY BODIES 0; MACROCYTOSIS 0; OVALOCYTE 0; PLATELET ESTIMATE NORMAL; ROULEAU 0; SICKELED CELLS 0; TARGET CELLS 0; TEAR DROP CELLS 0; TOXIC GRANULATION 0
[2018-01-23] MEDS ORDERED: BICALUTAMIDE 50 MG TABLET (FP) PO SCH (13:30)
[2018-01-23] MEDS ORDERED: PT OWN MED DRAWER 7, Y5N ONE (15:02)
--- NOTE | 2018-01-23 16:08 | PN ---
Teaching Attending Note Name of Resident: Rosetta Le ATTENDING PHYSICIAN STATEMENT I saw and evaluated the patient. I reviewed the resident's note and discussed the case with the resident. I agree with the resident's findings and plan as documented. SUBJECTIVE: no fever or chills. has no back pain of LE pain. OBJECTIVE: NAD Cv: RRR Lungs: CTAB Ext: no edema Neuro of LE: strength 5/5 proximally and distally 3+ knee jerk b/l . decreased sensatio of R big toe and R sole compared to L side ASSESSMENT AND PLAN: Unfortunate 77 y/o man with h/o HTN, Helicobacter pylori and BPH who presented with urinary retention and was found to have bone mets with nerve compression . 1- Urinary retention : due to compromise of sacral canal due to pre-sacral mass. - cont cui - f/u with urology. 2- Pre-sacral mass and bone mets: possible prostate cancer. s/p prostate and bone Bx with pending results. this was d/w urology, heme , rad Onc, and neuro sx . all agree that patient can follow up for biopsy results and treatment plan . No ortho intervention 3- possible RASTA PNA; no more fever or leukocytosis - finished 5 days of ceftriaxone 4- Recent diagnosis of HP : on calrithro, amoxi and PPI dispo : dc home today . ambulating normally with no assist . f/u with ONC, uro, RadONc, PCP , Neuro sx .
[2018-01-23 18:19] VITALS: BP 131/78; PULSE 90; TEMP 98
--- NOTE | 2018-01-24 08:51 | DS ---
Physical Exam: SUBJECTIVE: Patient seen and examined at bedside. Seen with a cui with no acute complaints. OBJECTIVE: Vital Signs Period Temp Pulse Resp BP Sys/Tapia Pulse Ox Last 24 Hr 97.7 F-98.2 F 83-90 18-20 120-131/71-84 99 PHYSICAL EXAM GENERAL: NAD. AAOx3 HEAD: AT/NC NECK: Supple, no JVD or LAD LUNGS: CTA B/L. Symmetric chest rise. No wheezes, rhonchi, or rales appreciated HEART: RRR. Normal S1, S2. No murmurs, rubs, or gallops appreciated. ABDOMEN: Soft NT/ND. Normoactive bowel sounds in all 4Qs. No masses or deformities. : Cui in place. MUSCULOSKELETAL: 5/5 motor strength on U/L B/L extremities; No peripheral edema noted. 2+ reflexes in U/L B/L extremities. NEUROLOGICAL: Cranial nerves II-XII intact. Normal speech. PSYCHIATRIC: Cooperative. Good eye contact. Appropriate mood and affect. SKIN: Warm, dry, normal turgor, no rashes or lesions noted, normal capillary refill. LABS Laboratory Results - last 24 hr 01/23/18 06:30 Neutrophils % (Manual) 70.7 Band Neutrophils % 0.0 Lymphocytes % (Manual) 2.0 L Monocytes % (Manual) 21 H Eosinophils % (Manual) 0.0 Basophils % (Manual) 0.0 Myelocytes % (Man) 0 Promyelocytes % (Man) 0 Blast Cells % (Manual) 0 Nucleated RBC % 0 Metamyelocytes 1 Hypochromia 0 Toxic Granulation 0 Dohle Bodies 0 Platelet Estimate Normal Polychromasia 0 Poikilocytosis 0 Basophilic Stippling 0 Anisocytosis 0 Microcytosis 0 Macrocytosis 0 Spherocytes 0 Sickle Cells 0 Target Cells 0 Tear Drop Cells 0 Ovalocytes 0 Stomatocytes 0 Helmet Cells 0 Abraham-Alburnett Bodies 0 Ozone Rings 0 Sue Cells 0 Acanthocytes (Spur) 0 Rouleaux 0 Fragmented RBCs 0 Schistocytes 0 HOSPITAL COURSE: 77M admitted for urinary retention and lumbar back pain. Upon arrival, cui catheter was inserted to alleviate urinary retention and CT of lumbar spine showed extensive metastatic disease. Upon further workup, MRI of spine showed high suspicion for prostate cx as cause of metastatic disease. Bone biopsy was done by IR and radiation oncology was consulted for the decision to do radiation therapy upon discharge. Urology performed prostate biopsy which revealed Dianna score 9. Oncology was consulted for additional treatment of diagnosis pending results of biopsy. During hospital stay, pt's lumbar back pain greatly improved and had no complaints throughout stay. Patient was discharged with cui with plans to proceed with RT outpatient. He was directed to follow up with PCP, radiation oncology, oncologist, and urologist. Date of Admission:01/16/18 Date of Discharge: 01/24/18 Minutes to complete discharge: 35 Discharge Summary Reason For Visit: SPINAL STENOSIS/PRIM PROST CANCER Condition: Stable - Instructions Diet, Activity, Other Instructions: You were admitted to the hospital for urinary retention and lumbar back pain. Upon admission, you were placed on a cui catheter to alleviate your urinary retention. Imaging studies were done that showed significant lesions in your spine that prompted a prostate and bone biopsy to be done for further evaluation. You were seen by a urologist, neurosurgeon, oncologist, and radiation oncologist for further workup to discuss treatment options for your prostate cancer. As discussed, you will follow up with the radiation oncologist for radiation therapy. For your urinary retention, you were discharged home with a cui catheter. MEDICAL RECOMMENDATIONS Please continue your home meds for H. Pylori treatment. Please continue Bisodex 50 mg once a day. Please follow instructions for your cui catheter care. Please take Miralax 17 gm daily for constipation. CONSULT RECOMMENDATIONS Please follow up with your primary care physician within 1 week. Please follow up with your urologist within [address] Sarmiento. Please follow up with your oncologist within [address] Mcghee ([phone]) Please follow up with your radiation oncologist in [address] Farrell. If you experience any signs of severe infection including fever or chill or experience persistent pain, please go to your nearest emergency room immediately. [place] [facility] [place] [facility] [place] [Provider Group] Dion Farrell MD [Staff Physician] - 1 Week Zahira Posadas MD [Staff Physician] - 2 Weeks Darin Burks MD [Staff Physician] - 2 Weeks Disposition: HOME - Home Medications Comprehensive Discharge Medication List: Ambulatory Orders Amoxicillin - [Amoxicillin 500mg Capsule -] 1,000 mg PO BID 01/16/18 Clarithromycin 1,000 mg PO BID 01/16/18 Dexlansoprazole [Dexilant] 60 mg PO BID 01/16/18 Enalapril Maleate [Vasotec -] 10 mg PO DAILY 01/16/18 Bicalutamide [Casodex -] 50 mg PO DAILY #30 tablet 01/23/18 Polyethylene Glycol 3350 [Miralax 119 gm Btl -] 17 gm PO DAILY #30 bottle This patient is new to me today: No Emergency Visit: No Critical Care patient: No - Discharge Referral Referred to [facility] Med P.C.: No
--- NOTE | 2018-01-26 14:02 | PATH ---
Surgical Pathology Report Patient Name: DANIA ABDALLA Med. Rec. #: [id number] /Age/Gender: 1940 (Age: 77) / M Account: [id number] Location: [facility] MED/SURG Taken: 01/22/2018 Received: 01/22/2018 Reported: 01/26/2018 Physicians: Sabas Johnson M.D. PHYSICIAN EMERGENCY DEPT Specimen(s) Received PELVIC BONE BX Clinical History 77-year-old male with elevated PSA and numerous bony lesions predominantly sclerotic and some lytic Final Diagnosis PELVIC BONE BIOPSY: BONE WITH METASTATIC ADENOCARCINOMA, CONSISTENT WITH PROSTATE PRIMARY. Comment: The tumor cells express PSAP, NKX 3.1, and TTF-1, while negative for PSA and Keya-3. This immunoprofile is consistent with prostate primary metastatic adenocarcinoma. PSAP, NKX 3.1, PSA, and Keya-3 were performed at [place], [place] ([id number]) and interpreted at [facility] TTF-1 was performed and interpreted at [facility]. Positive and negative controls (internal if applicable) show appropriate results. Intradepartmental case revealed with consensus on diagnosis. This case was discussed with Dr. Posadas on January 26, 2018. Electronically Signed Zackery Moon M.D. Gross Description Received in formalin labeled "pelvic bone biopsy," are 6 richardson-yellow, cylindrical portions of soft bone ranging from 0.3-1.1 cm in length and averaging 0.1 cm in diameter. The specimens are submitted in toto in one cassette, following decalcification. /01/22/201801/22/2018
--- NOTE | 2018-01-26 15:22 | PATH ---
Surgical Pathology Report Patient Name: DANIA ABDALLA [facility]. Rec. #: [id number] /Age/Gender: 1940 (Age: 77) / M Account: [id number] Location: [facility] MED/SURG Taken: 01/21/2018 Received: 01/21/2018 Reported: 01/26/2018 Physicians: Michael Arzola M.D. Specimen(s) Received A: LEFT MID PROSTATE BIOPSY B: LEFT LATERAL PROSTATE BIOPSY C: LEFT APEX PROSTATE BIOPSY D: RIGHT MID PROSTATE BIOPSY E: RIGHT LATERAL PROSTATE BIOPSY F: RIGHT APEX PROSTATE BIOPSY Clinical History Elevated PSA, Approx. 2700 Final Diagnosis A. PROSTATE, LEFT, MID, BIOPSY: ADENOCARCINOMA, SIMONA SCORE 4+3=7 (GRADING GROUP 3), IN 1 OF 1 CORE, INVOLVING 30% OF NEEDLE CORE TISSUE, AND MEASURING 4 MM IN LENGTH. B. PROSTATE, LEFT, LATERAL, BIOPSY: ADENOCARCINOMA, SIMONA SCORE 4+4=8 (GRADING GROUP 4), IN 2 OF 2 CORES, INVOLVING 70% OF NEEDLE CORE TISSUE, AND MEASURING 6 AND 8 MM IN LENGTH SKELETAL MUSCLE INVASION IDENTIFIED. C. PROSTATE, LEFT, APEX, BIOPSY: ADENOCARCINOMA, SIMONA SCORE 4+4=8 (GRADING GROUP 4), IN 2 OF 2 CORES, INVOLVING 80% OF NEEDLE CORE TISSUE, AND MEASURING 8 MM IN LENGTH. D. PROSTATE, MID, RIGHT, BIOPSY: ADENOCARCINOMA, SIMONA SCORE 4+5=9 (GRADING GROUP 5), IN 1 OF 1 CORE, INVOLVING 50% OF NEEDLE CORE TISSUE, AND MEASURING 1 MM IN LENGTH EACH. E. PROSTATE, RIGHT, LATERAL, BIOPSY: ADENOCARCINOMA, SIMONA SCORE 4+5=9 (GRADING GROUP 5), IN 1 OF 1 CORE, INVOLVING 85% OF NEEDLE CORE TISSUE, AND MEASURING 10 MM IN LENGTH PERINEURAL AND SKELETAL MUSCLE INVASION IDENTIFIED. F. PROSTATE, RIGHT, APEX, BIOPSY: ADENOCARCINOMA, SIMONA SCORE 4+4=8 (GRADING GROUP 4), IN 1 OF 1 CORE, INVOLVING 70% OF NEEDLE CORE TISSUE, AND MEASURING 7 MM IN LENGTH. SKELETAL MUSCLE INVASION IDENTIFIED Comment: Findings discussed with Dr. Burks. Electronically Signed Jade Michael M.D. Gross Description A. Received in formalin labeled "left mid prostate," is a 1.2 cm length x 0.1 cm diameter richardson, cylindrical portion of soft tissue. The specimen is submitted in toto in one cassette. B. Received in formalin labeled "left lateral prostate," are 2 richardson, cylindrical portions of soft tissue measuring 0.5 and 1.7 cm in length in averaging 0.1 cm diameter. The specimens are submitted in toto in one cassette. C. Received in formalin labeled "left apex prostate," are 2 richardson, cylindrical portions of soft tissue averaging 1.6 cm in length and 0.1 cm diameter. The specimens are submitted in toto in one cassette. D. Received in formalin labeled "right mid prostate," is a 1.8 cm in length x 0.1 cm diameter richardson, cylindrical portion of soft tissue. The specimen is submitted in toto in one cassette. E. Received in formalin labeled "right lateral prostate," is a 2.0 cm in length x 0.1 cm diameter richardson, cylindrical portion of soft tissue. The specimen is submitted in toto in one cassette. F. Received in formalin labeled "right apex prostate," is a 0.7 cm in length x 0.1 cm diameter richardson, cylindrical portion of soft tissue which is submitted in toto in one cassette. 01/22/2018 saudi01/22/2018
--- NOTE | 2018-02-06 12:10 | OP ---
DATE OF OPERATION: 01/21/2018 DATE OF DICTATION: 02/06/2018 PREOPERATIVE DIAGNOSES: Elevated prostate-specific antigen, metastatic cancer of unknown origin. POSTOPERATIVE DIAGNOSES: Elevated prostate-specific antigen, metastatic cancer of unknown origin. PROCEDURE: Transrectal ultrasound-guided prostate biopsy (code [id number]). OPERATIVE SURGEON: Darin Burks MD SPECIMENS: Prostate biopsies. PREOPERATIVE INDICATIONS: The patient is a 77-year-old male who presents with neurological symptoms. Body scanning reveals metastatic disease to the bone which appears to be suspicious for prostate cancer. In addition his PSA on admission is 2000. He comes to the ultrasound department to have a transurethral ultrasound-guided prostate biopsy. PROCEDURE: The solar field service technician performed a transrectal ultrasound of the prostate measuring volume. This can be referenced otherwise. With the ultrasound guidance I performed a 6-core biopsy hitting the apex, mid gland and base of the prostate both on the right and left sides for a total of 6 biopsies. Patient tolerated procedure well. Please note he received preprocedure and will receive postprocedure antibiotics. DARIN BURKS M.D. [id number]
== END 2018-01-23 20:50 | disposition home or self-care (01) | DRG 477 ==
LOC: JER 21:21 → JERBED 23:21 → J7W 01-17 05:06
PROVIDERS: ADMIT Internal Medicine; ATTEND Internal Medicine
PROC: 0VB03ZX Excision of Prostate, Percutaneous Approach, Diagnostic (ICD-10-PCS; principal; 2018-01-21)
PROC: 0QB13ZX Excision of Sacrum, Percutaneous Approach, Diagnostic (ICD-10-PCS; 2018-01-21)
DX: C79.51 Secondary malignant neoplasm of bone (principal); E43 Unspecified severe protein-calorie malnutrition; J18.9 Pneumonia, unspecified organism; C78.7 Secondary malignant neoplasm of liver and intrahepatic bile duct; J90 Pleural effusion, not elsewhere classified; Z68.1 Body mass index [BMI] 19.9 or less, adult; I10 Essential (primary) hypertension; N40.0 Benign prostatic hyperplasia without lower urinary tract symptoms; M54.5 Low back pain; R33.9 Retention of urine, unspecified; K27.9 Peptic ulcer, site unspecified, unspecified as acute or chronic, without hemorrhage or perforation; K59.00 Constipation, unspecified; M41.86 Other forms of scoliosis, lumbar region; C61 Malignant neoplasm of prostate; R63.4 Abnormal weight loss; R97.20 Elevated prostate specific antigen [PSA]; B96.81 Helicobacter pylori [H. pylori] as the cause of diseases classified elsewhere; G58.8 Other specified mononeuropathies
CPT/HCPCS: 20225; 36415; 71045-TC-FY; 71260-TC; 72131-TC; 72158-TC; 74177-TC; 76856-TC; 76942-TC; 80048; 80053; 81003; 81015; 82378; 83615; 83735; 84100; 84153; 85025; 85027; 85384; 85610; 85730; 86301; 86850; 86900; 86901; 87040; 87086; 87899; 88305-TC; 93005; 93010; 97116-GP; 97162-GP; 99283-25; J1644; J7030